=== PATIENT | male | born 1955 | race Caucasian/White ===

== ENCOUNTER → 2020-01-30 | Emergency (ER) | payer MEDICAID, OTHER ==
[~2020-01-30] VITALS: Ht 175.3 cm; Wt 77.1 kg
[2020-01-30 10:38] LABS: Basophils # (auto) 0.1 10 ^3/uL (0-0.2); Basophils % (auto) 0.6 % (0.0-2.0); Eosinophils # (auto) 0.2 10 ^3/uL (0-0.8); Eosinophils % (auto) 1.4 % (0.0-7.0); Hematocrit 48.3 % (41.0-53.0); Lymphocytes # (auto) 2.1 10 ^3/uL (0.4-5.4); Lymphocytes % (auto) 16.1 % (10.0-50.0); Mean Corpuscular Hgb Conc. 33.2 g/dL (32.0-36.0); Mean Corpuscular Volume 93.4 fL (80.0-100.0); Monocytes # (auto) 1.5 10 ^3/uL (0-1.3); Monocytes % (auto) 11.2 % (0.0-12.0); Neutrophils # (auto) 9.2 10 ^3/uL (1.6-8.6); Neutrophils % (auto) 70.7 % (37.0-80.0); Nucleated Red Blood Cells % 0.1 %; Platelet Count (auto) 221 10^3/uL (140-450); Red Blood Cells 5.17 10^6/uL (4.5-5.90); Red Cell Distribution Width 14.6 % (11.8-14.3); White Blood Cell 13.1 10^3/uL (4.4-10.8)
[2020-01-30 11:03] LABS: Chloride 105 mmol/L (98-107); Potassium 4.1 mmol/L (3.5-5.1); Sodium 136 mmol/L (136-145)
[2020-01-30 11:16] LABS: Urine WBC None Seen /hpf (0 - 3)
[2020-01-30 11:16] LABS: Alanine Aminotransferase 36 U/L (16-61); Albumin 4.1 g/dL (3.4-5.0); Alkaline Phosphatase 104 U/L (45-117); Anion Gap 6 (5-15); Aspartate Aminotransferase 23 U/L (15-37); BUN/Creatinine Ratio 11.1; Bilirubin, Total 0.5 mg/dL (0.2-1.0); Blood Urea Nitrogen 13 mg/dL (7-18); Calcium 9.4 mg/dL (8.5-10.1); Carbon Dioxide 25 mmol/L (21-32); GFR African American 81 mL/min; GFR Non-African American 67 mL/min; Glucose 115 mg/dL (74-106); Magnesium 2.3 mg/dL (1.6-2.6); Total Protein 7.3 g/dL (6.4-8.2)
[2020-01-30 11:46] LABS: Urine Bacteria NONE SEEN /hpf (None Seen); Urine Blood Negative /uL (Negative); Urine Specific Gravity 1.003 (1.001-1.035)
[2020-01-30 12:23] LABS: Alcohol, Urine < 3.0 mg/dL (0-10); Amphetamine Screen, Urine NEGATIVE (NEGATIVE); Barbiturate Scree,Urine NEGATIVE (NEGATIVE); Benzodiazephine Screen, Urine NEGATIVE (NEGATIVE); Cannabinoid Screen, Urine NEGATIVE (NEGATIVE); Cocaine Screen, Urine NEGATIVE (NEGATIVE); Opiate Scree,Urine NEGATIVE (NEGATIVE); Phencyclidine Screen, Urine NEGATIVE (NEGATIVE)
[2020-01-30 15:00] VITALS: BP 113/77
== END | disposition home or self-care (01) ==
LOC: EDBD 09:37 → ER 09:37
DX: R73.03 Prediabetes (principal); F41.9 Anxiety disorder, unspecified
CPT/HCPCS: 36415; 71045; 80053; 80307; 81001; 83735; 84484; 85025; 93005

== ENCOUNTER 2020-02-08 10:07 | Emergency (ER) | payer MEDICAID ==
[~2020-02-08] VITALS: Ht 175.3 cm; Wt 77.1 kg
[2020-02-08 11:22] LABS: Basophils # (auto) 0.1 10 ^3/uL (0-0.2); Basophils % (auto) 0.8 % (0.0-2.0); Eosinophils # (auto) 0.2 10 ^3/uL (0-0.8); Eosinophils % (auto) 1.4 % (0.0-7.0); Hemoglobin 17.4 g/dL (13.5-17.5); Lymphocytes # (auto) 2.5 10 ^3/uL (0.4-5.4); Lymphocytes % (auto) 18.5 % (10.0-50.0); Mean Corpuscular Hemoglobin 30.5 pg (28.0-32.0); Mean Corpuscular Hgb Conc. 32.9 g/dL (32.0-36.0); Mean Corpuscular Volume 92.8 fL (80.0-100.0); Monocytes # (auto) 1.3 10 ^3/uL (0-1.3); Monocytes % (auto) 9.8 % (0.0-12.0); Neutrophils # (auto) 9.3 10 ^3/uL (1.6-8.6); Neutrophils % (auto) 69.5 % (37.0-80.0); Platelet Count (auto) 270 10^3/uL (140-450); Red Blood Cells 5.71 10^6/uL (4.5-5.90); Red Cell Distribution Width 14.7 % (11.8-14.3); White Blood Cell 13.3 10^3/uL (4.4-10.8)
[2020-02-08 11:23] LABS: Urine Bacteria NONE SEEN /hpf (None Seen); Urine Blood Negative /uL (Negative); Urine Specific Gravity 1.005 (1.001-1.035); Urine WBC <1 /hpf (0 - 3)
[2020-02-08 11:39] LABS: Alanine Aminotransferase 38 U/L (16-61); Albumin 4.5 g/dL (3.4-5.0); Anion Gap 5 (5-15); Aspartate Aminotransferase 21 U/L (15-37); BUN/Creatinine Ratio 8.8; Blood Urea Nitrogen 12 mg/dL (7-18); Calcium 9.8 mg/dL (8.5-10.1); Carbon Dioxide 29 mmol/L (21-32); Chloride 103 mmol/L (98-107); GFR African American 68 mL/min; GFR Non-African American 56 mL/min; Glucose 91 mg/dL (74-106); Potassium 4.3 mmol/L (3.5-5.1); Sodium 137 mmol/L (136-145)
[2020-02-08 11:43] LABS: Alkaline Phosphatase 137 U/L (45-117); Bilirubin, Total 0.8 mg/dL (0.2-1.0); Total Protein 8.4 g/dL (6.4-8.2)
[2020-02-08 17:19] VITALS: BP 123/85
== END 2020-02-08 15:34 | disposition home or self-care (01) ==
LOC: ER 10:07
DX: R53.1 Weakness (principal); R19.7 Diarrhea, unspecified; J44.9 Chronic obstructive pulmonary disease, unspecified; E11.9 Type 2 diabetes mellitus without complications; I10 Essential (primary) hypertension; Z88.1 Allergy status to other antibiotic agents; Z90.49 Acquired absence of other specified parts of digestive tract
CPT/HCPCS: 36415; 71045; 80053; 81001; 84484; 85025; 93005; 99285; J7030

== ENCOUNTER 2020-11-06 17:52 | Inpatient (IN) | payer MEDICAID ==
[~2020-11-06] VITALS: Ht 182.9 cm; Wt 67.0 kg
[2020-11-06] MEDS ORDERED: IPRATROPIUM BROM 0.5 MG/2.5ML INH SOL NEB ONE (19:00)
[2020-11-06] MEDS ORDERED: ALBUTEROL SULF 2.5 MG/0.5ML(0.5%) NEB SOLN NEB ONE (19:00)
[2020-11-06 19:45] LABS: Albumin 3.9 g/dL (3.4-5.0); Anion Gap 7 (5-15); Basophils # (auto) 0.1 10 ^3/uL (0-0.2); Basophils % (auto) 0.3 % (0.0-2.0); Blood Urea Nitrogen 22 mg/dL (7-18); Calcium 9.1 mg/dL (8.5-10.1); Carbon Dioxide 26 mmol/L (21-32); Chloride 105 mmol/L (98-107); Eosinophils # (auto) 0.2 10 ^3/uL (0-0.8); Eosinophils % (auto) 1.1 % (0.0-7.0); Glucose 105 mg/dL (74-106); Hematocrit 46.4 % (41.0-53.0); Hemoglobin 15.9 g/dL (13.5-17.5); Lymphocytes # (auto) 1.4 10 ^3/uL (0.4-5.4); Lymphocytes % (auto) 6.9 % (10.0-50.0); Magnesium 2.4 mg/dL (1.6-2.6); Mean Corpuscular Hemoglobin 31.7 pg (28.0-32.0); Mean Corpuscular Hgb Conc. 34.2 g/dL (32.0-36.0); Mean Corpuscular Volume 92.8 fL (80.0-100.0); Monocytes # (auto) 1.7 10 ^3/uL (0-1.3); Monocytes % (auto) 8.5 % (0.0-12.0); Neutrophils # (auto) 17.1 10 ^3/uL (1.6-8.6); Neutrophils % (auto) 83.2 % (37.0-80.0); Nucleated Red Blood Cells % 0.1 %; Platelet Count (auto) 185 10^3/uL (140-450); Potassium 4.4 mmol/L (3.5-5.1); Red Cell Distribution Width 13.5 % (11.8-14.3); Sodium 138 mmol/L (136-145); White Blood Cell 20.5 10^3/uL (4.4-10.8)
[2020-11-06 19:51] LABS: Alanine Aminotransferase 58 U/L (16-61); Alkaline Phosphatase 158 U/L (45-117); Aspartate Aminotransferase 88 U/L (15-37); BUN/Creatinine Ratio 18.3; Bilirubin, Total 1.3 mg/dL (0.2-1.0); GFR African American 79 mL/min; GFR Non-African American 65 mL/min; Total Protein 7.3 g/dL (6.4-8.2)
[2020-11-06 20:00] LABS: INR 1.1 (0.9-1.15); Partial Thromboplastin Time 24.3 sec (23.0-31.2)
[2020-11-06] MEDS ORDERED: IOHEXOL 300 MG/ML 100ML BOTTLE IJ ONE (21:05)
[2020-11-06 21:20] LABS: Urine Bacteria NONE SEEN /hpf (None Seen); Urine Blood Negative /uL (Negative); Urine Hyaline Cast FEW /lpf (0 - 2); Urine Mucus FEW (None Seen); Urine Specific Gravity 1.017 (1.001-1.035); Urine WBC 2 /hpf (0 - 3)
[2020-11-07] MEDS ORDERED: metroNIDAZOLE 500MG/100ML 100 ML IV ONE
[2020-11-07] MEDS ORDERED: levoFLOXacin 750MG 150 ML IV ONE
[2020-11-07] MEDS ORDERED: HYDROcodone-ACET 5/325MG TAB PO PRN (00:45)
[2020-11-07] MEDS ORDERED: IPRATROPIUM BROM 0.5 MG/2.5ML INH SOL NEB PRN (00:45)
[2020-11-07] MEDS ORDERED: MORPHINE SULF INJ 2 MG/ML SYRINGE 1ML IV PRN (00:45)
[2020-11-07] MEDS ORDERED: VANCOMYCIN PER PHARMACY 0 MG IV SCH (00:45)
[2020-11-07] MEDS ORDERED: ACETAMINOPHEN 325 MG TAB PO PRN (00:45)
[2020-11-07] MEDS ORDERED: ONDANSETRON HCL 4 MG/2 ML VIAL IV PRN (00:45)
[2020-11-07] MEDS ORDERED: NITROGLYCERIN 0.4 MG SL TAB SL PRN (00:45)
[2020-11-07] MEDS ORDERED: MORPHINE SULFATE 4 MG/ML SYR/VIAL IV PRN (00:45)
[2020-11-07] MEDS ORDERED: ALBUTEROL SULF 2.5 MG/0.5ML(0.5%) NEB SOLN NEB PRN (00:45)
[2020-11-07 00:49] VITALS: BP 104/77
[2020-11-07] MEDS ORDERED: VANCOMYCIN 1GM/250ML 250 ML IV ONE (01:00)
[2020-11-07] MEDS: SODIUM CHLORIDE 0.9% 1,000 ML IV SCH ×2 (02:43→17:25)
[2020-11-07 05:09] VITALS: BP 111/76
[2020-11-07] MEDS: metroNIDAZOLE 500MG/100ML 100 ML IV SCH ×2 (06:33→14:38)
[2020-11-07 07:20] LABS: Basophils # (auto) 0 10 ^3/uL (0-0.2); Basophils % (auto) 0.3 % (0.0-2.0); Eosinophils # (auto) 0.3 10 ^3/uL (0-0.8); Eosinophils % (auto) 2.9 % (0.0-7.0); Hematocrit 45.3 % (41.0-53.0); Hemoglobin 15.4 g/dL (13.5-17.5); Lymphocytes # (auto) 1.7 10 ^3/uL (0.4-5.4); Lymphocytes % (auto) 16.6 % (10.0-50.0); Mean Corpuscular Hemoglobin 31.4 pg (28.0-32.0); Mean Corpuscular Hgb Conc. 34.1 g/dL (32.0-36.0); Mean Corpuscular Volume 92.3 fL (80.0-100.0); Monocytes # (auto) 1.2 10 ^3/uL (0-1.3); Monocytes % (auto) 12.2 % (0.0-12.0); Neutrophils # (auto) 6.8 10 ^3/uL (1.6-8.6); Nucleated Red Blood Cells % 0.1 %; Platelet Count (auto) 178 10^3/uL (140-450); Red Blood Cells 4.91 10^6/uL (4.5-5.90); Red Cell Distribution Width 13.9 % (11.8-14.3)
[2020-11-07] MEDS ORDERED: TIOT1AER INH (07:20)
[2020-11-07] MEDS ORDERED: SPIR25TA8 PO (07:20)
[2020-11-07] MEDS ORDERED: TRAZ-181 PO (07:20)
[2020-11-07] MEDS ORDERED: HYDR-4072 (07:20)
[2020-11-07] MEDS ORDERED: FUR20T PO (07:20)
[2020-11-07] MEDS ORDERED: AMLO-496 PO (07:20)
[2020-11-07] MEDS ORDERED: CYCL-611 PO (07:20)
[2020-11-07] MEDS ORDERED: ALBU108A5 PO (07:20)
[2020-11-07 07:32] LABS: Albumin 3.5 g/dL (3.4-5.0); Calcium 8.6 mg/dL (8.5-10.1); Potassium 4.3 mmol/L (3.5-5.1)
[2020-11-07 07:37] LABS: BUN/Creatinine Ratio 14.4; Bilirubin, Total 1.2 mg/dL (0.2-1.0)
[2020-11-07 08:25] VITALS: BP 117/72
[2020-11-07] MEDS: PANTOPRAZOLE 40 MG/10 ML VIAL INJ IV SCH (09:50)
[2020-11-07] MEDS: ENOXAPARIN SOD 40 MG/0.4 ML SYRINGE SC SCH (09:50)
[2020-11-07] MEDS ORDERED: GASTROGRAFIN 120 ML SOL ONE (12:41)
[2020-11-07 12:47] VITALS: BP 130/73
[2020-11-07] MEDS ORDERED: VANCOMYCIN 1GM/250ML 250 ML IV SCH ×2 (15:00→16:00)
[2020-11-07 16:52] VITALS: BP 127/95
[2020-11-07 22:00] VITALS: BP 122/84
[2020-11-08] MEDS: metroNIDAZOLE 500MG/100ML 100 ML IV SCH ×2 (03:24→05:11)
[2020-11-08 05:00] VITALS: BP 111/74
[2020-11-08 08:17] LABS: Basophils # (auto) 0.1 10 ^3/uL (0-0.2); Basophils % (auto) 1.3 % (0.0-2.0); Eosinophils # (auto) 0.8 10 ^3/uL (0-0.8); Eosinophils % (auto) 7.7 % (0.0-7.0); Hematocrit 45.1 % (41.0-53.0); Hemoglobin 15.9 g/dL (13.5-17.5); Lymphocytes # (auto) 2.5 10 ^3/uL (0.4-5.4); Lymphocytes % (auto) 24.1 % (10.0-50.0); Mean Corpuscular Hemoglobin 32.5 pg (28.0-32.0); Mean Corpuscular Hgb Conc. 35.2 g/dL (32.0-36.0); Mean Corpuscular Volume 92.5 fL (80.0-100.0); Monocytes # (auto) 1.1 10 ^3/uL (0-1.3); Monocytes % (auto) 10.9 % (0.0-12.0); Neutrophils # (auto) 5.9 10 ^3/uL (1.6-8.6); Nucleated Red Blood Cells % 0.1 %; Platelet Count (auto) 175 10^3/uL (140-450); Red Blood Cells 4.88 10^6/uL (4.5-5.90); Red Cell Distribution Width 13.9 % (11.8-14.3); White Blood Cell 10.5 10^3/uL (4.4-10.8)
[2020-11-08 08:32] LABS: Albumin 3.7 g/dL (3.4-5.0); Calcium 8.9 mg/dL (8.5-10.1); Potassium 4.2 mmol/L (3.5-5.1)
[2020-11-08 08:36] LABS: BUN/Creatinine Ratio 16.7; Bilirubin, Total 0.8 mg/dL (0.2-1.0)
[2020-11-08 09:00] VITALS: BP 129/77
[2020-11-08] MEDS: ENOXAPARIN SOD 40 MG/0.4 ML SYRINGE SC SCH (10:37)
[2020-11-08] MEDS: SODIUM CHLORIDE 0.9% 1,000 ML IV SCH (10:37)
[2020-11-08] MEDS: PANTOPRAZOLE 40 MG/10 ML VIAL INJ IV SCH (10:37)
[2020-11-08 11:57] VITALS: BP 129/77
[2020-11-08 13:00] VITALS: BP 149/83
[2020-11-08] MEDS ORDERED: VANCOMYCIN 1GM/250ML 250 ML IV SCH (18:00)
== END 2020-11-08 13:30 | disposition home or self-care (01) | DRG 247 ==
LOC: EDBD 17:52 → EDUNIT# 17:52 → ER 17:58 → TELE-CENTR 11-07 00:44
PROVIDERS: ADMIT Nurse Practitioner Family; ATTEND Internal Medicine
DX: K56.699 Other intestinal obstruction unspecified as to partial versus complete obstruction (principal); C22.0 Liver cell carcinoma; R18.8 Other ascites; J44.1 Chronic obstructive pulmonary disease with (acute) exacerbation; D72.829 Elevated white blood cell count, unspecified; E11.9 Type 2 diabetes mellitus without complications; G89.4 Chronic pain syndrome; I10 Essential (primary) hypertension; K59.00 Constipation, unspecified; Z87.891 Personal history of nicotine dependence; Z90.49 Acquired absence of other specified parts of digestive tract; M19.90 Unspecified osteoarthritis, unspecified site; Z88.1 Allergy status to other antibiotic agents; Z20.822 Contact with and (suspected) exposure to COVID-19; K57.30 Diverticulosis of large intestine without perforation or abscess without bleeding
CPT/HCPCS: 36415; 71260; 74177; 74250; 80053; 81001; 82140; 83036; 83735; 84484; 85025; 85610; 85730; 87040; 87426; 94640; 96365; 96368; C9113; G0378; J1956; J3490

== ENCOUNTER 2021-01-16 16:23 | Emergency (ER) | payer MEDICAID ==
[~2021-01-16] VITALS: Ht 175.3 cm; Wt 78.0 kg
[~2021-01-16 16:23] MED LIST: ALBU108A5 PO; AMLO-496 PO; CYCL-611 PO; FUR20T PO; HYDR-4072; SPIR25TA8 PO; TIOT1AER INH; TRAZ-181 PO
[2021-01-16] MEDS ORDERED: SODIUM CHLORIDE 0.9% 1,000 ML IV ONE ×2 (16:45)
[2021-01-16 16:46] LABS: Basophils # (auto) 0.1 10 ^3/uL (0-0.2); Basophils % (auto) 0.6 % (0.0-2.0); Eosinophils # (auto) 0.5 10 ^3/uL (0-0.8); Eosinophils % (auto) 3.3 % (0.0-7.0); Hematocrit 47.9 % (41.0-53.0); Hemoglobin 16.1 g/dL (13.5-17.5); Lymphocytes # (auto) 2.1 10 ^3/uL (0.4-5.4); Lymphocytes % (auto) 14.4 % (10.0-50.0); Mean Corpuscular Hemoglobin 31.4 pg (28.0-32.0); Mean Corpuscular Hgb Conc. 33.6 g/dL (32.0-36.0); Mean Corpuscular Volume 93.5 fL (80.0-100.0); Monocytes # (auto) 1.7 10 ^3/uL (0-1.3); Monocytes % (auto) 11.2 % (0.0-12.0); Neutrophils # (auto) 10.4 10 ^3/uL (1.6-8.6); Neutrophils % (auto) 70.5 % (37.0-80.0); Nucleated Red Blood Cells % 0.1 %; Red Blood Cells 5.13 10^6/uL (4.5-5.90); Red Cell Distribution Width 14.8 % (11.8-14.3); White Blood Cell 14.8 10^3/uL (4.4-10.8)
[2021-01-16 17:09] LABS: Albumin 3.8 g/dL (3.4-5.0); Anion Gap 5 (5-15); Blood Urea Nitrogen 13 mg/dL (7-18); Carbon Dioxide 25 mmol/L (21-32); Chloride 107 mmol/L (98-107); Glucose 112 mg/dL (74-106); Potassium 4.6 mmol/L (3.5-5.1); Sodium 137 mmol/L (136-145)
[2021-01-16 17:11] LABS: Alanine Aminotransferase 128 U/L (16-61); Aspartate Aminotransferase 55 U/L (15-37); BUN/Creatinine Ratio 12.6; GFR African American 94 mL/min; GFR Non-African American 78 mL/min
[2021-01-16 17:15] LABS: Alkaline Phosphatase 130 U/L (45-117); Bilirubin, Total 0.4 mg/dL (0.2-1.0); Total Protein 7.3 g/dL (6.4-8.2)
[2021-01-16 18:24] VITALS: BP 128/99
== END 2021-01-16 18:50 | disposition home or self-care (01) ==
LOC: ER 16:23
DX: K58.9 Irritable bowel syndrome, unspecified (principal); I10 Essential (primary) hypertension; Z90.49 Acquired absence of other specified parts of digestive tract; Z88.6 Allergy status to analgesic agent; Z20.822 Contact with and (suspected) exposure to COVID-19
CPT/HCPCS: 36415; 71045; 74176; 80053; 84484; 85025; 87426; 93005

== ENCOUNTER 2021-01-31 05:15 | Emergency (ER) | payer MEDICAID ==
[~2021-01-31] VITALS: Ht 175.3 cm; Wt 71.7 kg
[2021-01-31] MEDS ORDERED: ACETAMINOPHEN 325 MG TAB PO ONE (05:45)
[2021-01-31 06:33] LABS: Basophils # (auto) 0.2 10 ^3/uL (0-0.2); Basophils % (auto) 0.8 % (0.0-2.0); Eosinophils # (auto) 0.1 10 ^3/uL (0-0.8); Eosinophils % (auto) 0.5 % (0.0-7.0); Hematocrit 46.6 % (41.0-53.0); Hemoglobin 15.9 g/dL (13.5-17.5); Lymphocytes # (auto) 1.2 10 ^3/uL (0.4-5.4); Lymphocytes % (auto) 5.8 % (10.0-50.0); Mean Corpuscular Hemoglobin 31.9 pg (28.0-32.0); Mean Corpuscular Hgb Conc. 34.2 g/dL (32.0-36.0); Mean Corpuscular Volume 93.2 fL (80.0-100.0); Monocytes # (auto) 2.9 10 ^3/uL (0-1.3); Monocytes % (auto) 13.7 % (0.0-12.0); Neutrophils # (auto) 16.8 10 ^3/uL (1.6-8.6); Neutrophils % (auto) 79.2 % (37.0-80.0); Nucleated Red Blood Cells % 0.1 %; White Blood Cell 21.2 10^3/uL (4.4-10.8)
[2021-01-31 06:56] LABS: Albumin 3.3 g/dL (3.4-5.0); Anion Gap 8 (5-15); Blood Urea Nitrogen 15 mg/dL (7-18); Calcium 8.8 mg/dL (8.5-10.1); Carbon Dioxide 23 mmol/L (21-32); Chloride 104 mmol/L (98-107); Glucose 102 mg/dL (74-106); Potassium 4.1 mmol/L (3.5-5.1); Sodium 135 mmol/L (136-145)
[2021-01-31 07:01] LABS: Alanine Aminotransferase 51 U/L (16-61); Alkaline Phosphatase 95 U/L (45-117); Aspartate Aminotransferase 34 U/L (15-37); BUN/Creatinine Ratio 15.8; GFR African American 103 mL/min; GFR Non-African American 85 mL/min; Total Protein 7.4 g/dL (6.4-8.2)
[2021-01-31 09:43] LABS: Urine WBC None Seen /hpf (0 - 3)
[2021-01-31 09:53] LABS: Urine Bacteria NONE SEEN /hpf (None Seen); Urine Blood Negative /uL (Negative); Urine Specific Gravity 1.006 (1.001-1.035)
[2021-01-31] MEDS ORDERED: cefTRIAXone 1GM/50ML D5W 50 ML IV ONE (10:15)
[2021-01-31 11:16] VITALS: BP 115/79
== END 2021-01-31 11:35 | disposition home or self-care (01) ==
LOC: ER 05:15
DX: J40 Bronchitis, not specified as acute or chronic (principal); I10 Essential (primary) hypertension; Z20.822 Contact with and (suspected) exposure to COVID-19; Z90.49 Acquired absence of other specified parts of digestive tract
CPT/HCPCS: 36415; 71045; 80053; 81001; 83880; 84484; 85025; 87426; 93005; 96365; 99285; J0696

== ENCOUNTER 2021-08-01 10:34 | Inpatient (IN) | payer MEDICAID ==
[~2021-08-01] VITALS: Ht 175.3 cm; Wt 77.0 kg
[2021-08-01] MEDS ORDERED: SODIUM CHLORIDE 0.9% 1,000 ML IV ONE (10:45)
[2021-08-01 11:23] LABS: Basophils # (auto) 0.1 10 ^3/uL (0-0.2); Basophils % (auto) 0.8 % (0.0-2.0); Eosinophils # (auto) 0.2 10 ^3/uL (0-0.8); Eosinophils % (auto) 1.5 % (0.0-7.0); Hematocrit 53.1 % (41.0-53.0); Hemoglobin 17.8 g/dL (13.5-17.5); Lymphocytes # (auto) 1.6 10 ^3/uL (0.4-5.4); Lymphocytes % (auto) 13.3 % (10.0-50.0); Mean Corpuscular Hemoglobin 31.1 pg (28.0-32.0); Mean Corpuscular Hgb Conc. 33.6 g/dL (32.0-36.0); Mean Corpuscular Volume 92.5 fL (80.0-100.0); Monocytes % (auto) 8.1 % (0.0-12.0); Neutrophils # (auto) 9.1 10 ^3/uL (1.6-8.6); Neutrophils % (auto) 76.3 % (37.0-80.0); Nucleated Red Blood Cells % 0.1 %; Red Blood Cells 5.74 10^6/uL (4.5-5.90); Red Cell Distribution Width 14.7 % (11.8-14.3)
[2021-08-01 11:38] LABS: Albumin 4.5 g/dL (3.4-5.0); Calcium 9.9 mg/dL (8.5-10.1); Potassium 4.5 mmol/L (3.5-5.1)
[2021-08-01 11:46] LABS: Bilirubin, Total 1.1 mg/dL (0.2-1.0); Total Protein 8.3 g/dL (6.4-8.2)
[2021-08-01] MEDS ORDERED: IPRATROPIUM BROM 0.5 MG/2.5ML INH SOL NEB ONE (13:00)
[2021-08-01] MEDS ORDERED: cefTRIAXone 1GM/50ML D5W 50 ML IV ONE (13:00)
[2021-08-01] MEDS ORDERED: methylPREDNISolone SOD SUCC 125 MG/2 ML VL IV ONE (13:00)
[2021-08-01] MEDS ORDERED: ALBUTEROL SULF 2.5 MG/0.5ML(0.5%) NEB SOLN NEB ONE (13:00)
[2021-08-01] MEDS ORDERED: ACETAMINOPHEN 325 MG TAB PO PRN (16:15)
[2021-08-01] MEDS ORDERED: MORPHINE SULFATE 4 MG/ML SYR/VIAL IV PRN (16:15)
[2021-08-01] MEDS ORDERED: MORPHINE SULFATE INJECTION 2 MG/ML SYRG IV PRN (16:15)
[2021-08-01] MEDS ORDERED: HYDROcodone-ACET 5/325MG TAB PO PRN (16:15)
[2021-08-01] MEDS ORDERED: DOCUSATE SOD 100 MG CAP PO PRN (16:15)
[2021-08-01] MEDS ORDERED: NITROGLYCERIN 0.4 MG SL TAB SL PRN (16:15)
[2021-08-01] MEDS ORDERED: ONDANSETRON HCL 4 MG/2 ML VIAL IV PRN (16:15)
[2021-08-01] MEDS ORDERED: AZITHROMYCIN 500MG/ 250ML 250 ML IV ONE (16:30)
[2021-08-01] MEDS: IPRATROPIUM BROM 0.5 MG/2.5ML INH SOL NEB SCH ×2 (18:19→22:12)
[2021-08-01] MEDS: ALBUTEROL SULF 2.5 MG/0.5ML(0.5%) NEB SOLN NEB SCH ×2 (18:19→22:12)
[2021-08-01] MEDS: methylPREDNISolone SOD SUCC 40 MG/ML VL IV SCH (22:51)
[2021-08-01] MEDS: ASCORBIC ACID 500 MG TAB PO SCH (22:51)
[2021-08-02] MEDS: TEMAZEPAM 15 MG CAP PO PRN ×2 (04:07→23:59)
[2021-08-02 05:00] VITALS: BP 131/78
[2021-08-02] MEDS: ALBUTEROL SULF 2.5 MG/0.5ML(0.5%) NEB SOLN NEB SCH ×5 (06:13→21:58)
[2021-08-02] MEDS: IPRATROPIUM BROM 0.5 MG/2.5ML INH SOL NEB SCH ×5 (06:14→21:58)
[2021-08-02] MEDS: methylPREDNISolone SOD SUCC 40 MG/ML VL IV SCH ×3 (06:28→21:34)
[2021-08-02 07:37] LABS: Potassium 4.2 mmol/L (3.5-5.1)
[2021-08-02 07:45] LABS: Basophils # (auto) 0 10 ^3/uL (0-0.2); Basophils % (auto) 0.1 % (0.0-2.0); Eosinophils # (auto) 0 10 ^3/uL (0-0.8); Hematocrit 49.2 % (41.0-53.0); Hemoglobin 16.7 g/dL (13.5-17.5); Lymphocytes # (auto) 0.9 10 ^3/uL (0.4-5.4); Lymphocytes % (auto) 4.9 % (10.0-50.0); Mean Corpuscular Hemoglobin 31.1 pg (28.0-32.0); Mean Corpuscular Hgb Conc. 33.9 g/dL (32.0-36.0); Mean Corpuscular Volume 91.8 fL (80.0-100.0); Monocytes # (auto) 0.5 10 ^3/uL (0-1.3); Monocytes % (auto) 2.6 % (0.0-12.0); Neutrophils # (auto) 16.4 10 ^3/uL (1.6-8.6); Neutrophils % (auto) 92.4 % (37.0-80.0); Nucleated Red Blood Cells % 0.1 %; Red Blood Cells 5.36 10^6/uL (4.5-5.90); Red Cell Distribution Width 14.3 % (11.8-14.3); White Blood Cell 17.8 10^3/uL (4.4-10.8)
[2021-08-02 07:57] LABS: BUN/Creatinine Ratio 25.5; Calcium 9.5 mg/dL (8.5-10.1); Magnesium 2.6 mg/dL (1.6-2.6)
[2021-08-02 08:40] VITALS: BP 129/77
[2021-08-02] MEDS: ZINC SULFATE 220mg CAP or TAB PO SCH (10:00)
[2021-08-02] MEDS: MULTIPLE VITAMIN TAB PO SCH (10:00)
[2021-08-02] MEDS: ASCORBIC ACID 500 MG TAB PO SCH ×2 (10:00→21:34)
[2021-08-02] MEDS: ENOXAPARIN SOD 40 MG/0.4 ML SYRINGE SC SCH (10:00)
[2021-08-02] MEDS: CEFTRIAXONE SODIUM 2 GM in D5W 5% 50 ML IV SCH (10:00)
[2021-08-02] MEDS: AZITHROMYCIN 500MG/ 250ML 250 ML IV SCH (10:45)
[2021-08-02 12:00] VITALS: BP 154/79
[2021-08-02] MEDS ORDERED: IOHEXOL 350 MG/ML 100ML IJ ONE (12:06)
[2021-08-02 16:15] VITALS: BP 117/67
[2021-08-02] MEDS ORDERED: amLODIPine BESYLATE 5 MG TAB PO ONE (16:30)
[2021-08-02] MEDS: THROAT LOZENGES(CEPASTAT) MT PRN ×2 (17:12→21:34)
[2021-08-02 22:00] VITALS: BP 114/83
[2021-08-02] MEDS ORDERED: CYCLOBENZAPRINE HCL 10 MG TAB PO PRN (22:00)
[2021-08-02] MEDS ORDERED: traZODone HCL 50 MG TAB PO SCH (22:00)
[2021-08-03] MEDS: methylPREDNISolone SOD SUCC 40 MG/ML VL IV SCH (05:51)
[2021-08-03] MEDS: IPRATROPIUM BROM 0.5 MG/2.5ML INH SOL NEB SCH ×3 (07:15→13:41)
[2021-08-03] MEDS: ALBUTEROL SULF 2.5 MG/0.5ML(0.5%) NEB SOLN NEB SCH ×3 (07:15→13:40)
[2021-08-03 09:00] VITALS: BP 111/77
[2021-08-03] MEDS: ZINC SULFATE 220mg CAP or TAB PO SCH (09:46)
[2021-08-03] MEDS: ASCORBIC ACID 500 MG TAB PO SCH (09:46)
[2021-08-03] MEDS: MULTIPLE VITAMIN TAB PO SCH (09:46)
[2021-08-03] MEDS: AZITHROMYCIN 500MG/ 250ML 250 ML IV SCH (09:48)
[2021-08-03] MEDS: ENOXAPARIN SOD 40 MG/0.4 ML SYRINGE SC SCH (09:55)
[2021-08-03] MEDS ORDERED: amLODIPine BESYLATE 5 MG TAB PO SCH (10:00)
[2021-08-03] MEDS ORDERED: METH4PAK PO (12:03)
[2021-08-03] MEDS: CEFTRIAXONE SODIUM 2 GM in D5W 5% 50 ML IV SCH (12:39)
[2021-08-03 13:00] VITALS: BP 124/77
== END 2021-08-03 15:54 | disposition home or self-care (01) | DRG 140 ==
LOC: ER 10:36 → TELE 16:13 → TELE-CENTR 22:00
PROVIDERS: ADMIT Internal Medicine; ATTEND Internal Medicine
DX: J43.9 Emphysema, unspecified (principal); J96.21 Acute and chronic respiratory failure with hypoxia; B18.2 Chronic viral hepatitis C; D72.829 Elevated white blood cell count, unspecified; G89.4 Chronic pain syndrome; I10 Essential (primary) hypertension; T38.0X5A Adverse effect of glucocorticoids and synthetic analogues, initial encounter; Z20.822 Contact with and (suspected) exposure to COVID-19; Z85.05 Personal history of malignant neoplasm of liver; Z85.46 Personal history of malignant neoplasm of prostate; Z87.891 Personal history of nicotine dependence; Z80.0 Family history of malignant neoplasm of digestive organs; Y92.89 Other specified places as the place of occurrence of the external cause; Z90.49 Acquired absence of other specified parts of digestive tract; Z88.1 Allergy status to other antibiotic agents
CPT/HCPCS: 36415; 71045; 71275; 80048; 80053; 83735; 84484; 85025; 85379; 87426; 94640; 96365; 96367; 96375; G0378; J0696; J7060

== ENCOUNTER 2021-08-18 13:33 | Inpatient (IN) | payer MEDICAID ==
[~2021-08-18] VITALS: Ht 175.3 cm; Wt 76.6 kg
[~2021-08-18 13:33] MED LIST changes: +METH4PAK PO
[2021-08-18] MEDS ORDERED: ASPirin 81 mg TAB PO ONE (13:45)
[2021-08-18 14:14] LABS: Basophils # (auto) 0.1 10 ^3/uL (0-0.2); Eosinophils # (auto) 0.2 10 ^3/uL (0-0.8); Hemoglobin 18.3 g/dL (13.5-17.5); Lymphocytes # (auto) 2.4 10 ^3/uL (0.4-5.4); Neutrophils # (auto) 10.7 10 ^3/uL (1.6-8.6); Nucleated Red Blood Cells % 0.1 %
[2021-08-18 14:16] LABS: Basophils % (auto) 0.4 % (0.0-2.0); Eosinophils % (auto) 1.2 % (0.0-7.0); Hematocrit 53.7 % (41.0-53.0); Lymphocytes % (auto) 16.3 % (10.0-50.0); Mean Corpuscular Hemoglobin 31.7 pg (28.0-32.0); Mean Corpuscular Hgb Conc. 34.2 g/dL (32.0-36.0); Mean Corpuscular Volume 92.7 fL (80.0-100.0); Monocytes # (auto) 1.5 10 ^3/uL (0-1.3); Monocytes % (auto) 10.3 % (0.0-12.0); Neutrophils % (auto) 71.8 % (37.0-80.0); Red Blood Cells 5.79 10^6/uL (4.5-5.90); Red Cell Distribution Width 14.8 % (11.8-14.3); White Blood Cell 14.9 10^3/uL (4.4-10.8)
[2021-08-18 14:31] LABS: Albumin 3.7 g/dL (3.4-5.0); BUN/Creatinine Ratio 17.3; Calcium 9.1 mg/dL (8.5-10.1); Potassium 4.4 mmol/L (3.5-5.1)
[2021-08-18 14:36] LABS: Bilirubin, Total 0.9 mg/dL (0.2-1.0); Total Protein 7.1 g/dL (6.4-8.2)
[2021-08-18] MEDS ORDERED: SODIUM CHLORIDE 0.9% 1,000 ML IV ONE (17:30)
[2021-08-18] MEDS ORDERED: IOHEXOL 350 MG/ML 100ML IJ ONE (17:31)
[2021-08-18 17:51] LABS: Amphetamine Screen, Urine NEGATIVE (NEGATIVE); Barbiturate Scree,Urine NEGATIVE (NEGATIVE); Benzodiazephine Screen, Urine NEGATIVE (NEGATIVE); Cannabinoid Screen, Urine POSITIVE (NEGATIVE); Cocaine Screen, Urine NEGATIVE (NEGATIVE); Opiate Scree,Urine NEGATIVE (NEGATIVE); Phencyclidine Screen, Urine NEGATIVE (NEGATIVE)
[2021-08-18] MEDS ORDERED: DOCUSATE SOD 100 MG CAP PO PRN (20:15)
[2021-08-18] MEDS ORDERED: ONDANSETRON HCL 4 MG/2 ML VIAL IV PRN (20:15)
[2021-08-18] MEDS ORDERED: NITROGLYCERIN 0.4 MG SL TAB SL PRN (20:15)
[2021-08-18] MEDS ORDERED: MORPHINE SULFATE INJECTION 2 MG/ML SYRG IV PRN (20:15)
[2021-08-18] MEDS ORDERED: ACETAMINOPHEN 325 MG TAB PO PRN (20:15)
[2021-08-18] MEDS ORDERED: HYDROcodone-ACET 5/325MG TAB PO PRN (20:15)
[2021-08-18 22:30] VITALS: BP 108/78
[2021-08-18] MEDS: CYCLOBENZAPRINE HCL 10 MG TAB PO SCH (22:47)
[2021-08-18] MEDS: METOPROLOL TARTRATE 25 MG TAB PO SCH (22:48)
[2021-08-18 22:51] VITALS: BP 108/78
[2021-08-19] MEDS: LEVALBUTEROL HCL 1.25 MG/3 ML NEB NEB SCH ×2 (00:19→07:29)
[2021-08-19 02:50] VITALS: BP 107/78
[2021-08-19 05:00] VITALS: BP 107/68
[2021-08-19 05:22] LABS: Urine WBC None Seen /hpf (0 - 3)
[2021-08-19 06:39] LABS: Basophils # (auto) 0.1 10 ^3/uL (0-0.2); Basophils % (auto) 0.8 % (0.0-2.0); Eosinophils # (auto) 0.2 10 ^3/uL (0-0.8); Eosinophils % (auto) 2.2 % (0.0-7.0); Hematocrit 47.8 % (41.0-53.0); Hemoglobin 16.2 g/dL (13.5-17.5); Lymphocytes # (auto) 2.4 10 ^3/uL (0.4-5.4); Lymphocytes % (auto) 23.4 % (10.0-50.0); Mean Corpuscular Hemoglobin 31.5 pg (28.0-32.0); Mean Corpuscular Hgb Conc. 33.8 g/dL (32.0-36.0); Mean Corpuscular Volume 93.1 fL (80.0-100.0); Monocytes % (auto) 10.3 % (0.0-12.0); Neutrophils # (auto) 6.4 10 ^3/uL (1.6-8.6); Neutrophils % (auto) 63.3 % (37.0-80.0); Nucleated Red Blood Cells % 0.1 %; Red Blood Cells 5.14 10^6/uL (4.5-5.90); Red Cell Distribution Width 14.9 % (11.8-14.3); White Blood Cell 10.1 10^3/uL (4.4-10.8)
[2021-08-19 06:58] LABS: BUN/Creatinine Ratio 26.9; Calcium 8.5 mg/dL (8.5-10.1); Potassium 4.1 mmol/L (3.5-5.1)
[2021-08-19 06:59] LABS: Urine Bacteria NONE SEEN /hpf (None Seen); Urine Blood Negative /uL (Negative); Urine Mucus FEW (None Seen)
[2021-08-19 07:00] LABS: Urine Specific Gravity > 1.050 (1.001-1.035)
[2021-08-19 09:00] VITALS: BP 110/74
[2021-08-19] MEDS: POTASSIUM CHL 20 Meq TABLET PO SCH ×2 (10:00→10:11)
[2021-08-19] MEDS: ENOXAPARIN SOD 40 MG/0.4 ML SYRINGE SC SCH ×2 (10:00→10:13)
[2021-08-19] MEDS: CYCLOBENZAPRINE HCL 10 MG TAB PO SCH ×2 (10:00→10:11)
[2021-08-19] MEDS: FUROSEMIDE 20 MG TAB PO SCH ×2 (10:00→10:12)
[2021-08-19] MEDS: METOPROLOL TARTRATE 25 MG TAB PO SCH (10:12)
[2021-08-19] MEDS ORDERED: LEVA1.2518 NEB (11:41)
[2021-08-19] MEDS ORDERED: POTA10TA32 PO (11:41)
[2021-08-19] MEDS ORDERED: MET25T PO (11:41)
[2021-08-19 13:00] VITALS: BP 113/71
[2021-08-19] MEDS ORDERED: LEVA1.2518 HHN (16:01)
== END 2021-08-19 14:04 | disposition home health service (06) | DRG 201 ==
LOC: ER 13:33 → TELE 20:14 → TELE-EAST 21:39
PROVIDERS: ADMIT Internal Medicine; ATTEND Internal Medicine
DX: R00.0 Tachycardia, unspecified (principal); I11.0 Hypertensive heart disease with heart failure; I50.32 Chronic diastolic (congestive) heart failure; D72.829 Elevated white blood cell count, unspecified; J43.9 Emphysema, unspecified; Z20.822 Contact with and (suspected) exposure to COVID-19; M62.838 Other muscle spasm; F12.90 Cannabis use, unspecified, uncomplicated; R79.89 Other specified abnormal findings of blood chemistry; F17.200 Nicotine dependence, unspecified, uncomplicated; Z71.6 Tobacco abuse counseling; Z80.0 Family history of malignant neoplasm of digestive organs; Z85.05 Personal history of malignant neoplasm of liver; Z85.46 Personal history of malignant neoplasm of prostate; Z88.1 Allergy status to other antibiotic agents; Z90.49 Acquired absence of other specified parts of digestive tract
CPT/HCPCS: 36415; 71045; 71275; 80048; 80053; 80307; 81001; 84443; 84484; 85025; 85379; 87081; 87426; 93005; 93306; 93970; 94640; 96360; G0378

== ENCOUNTER 2021-09-07 08:00 | Emergency (ER) | payer MEDICAID ==
[~2021-09-07] VITALS: Ht 175.3 cm; Wt 76.7 kg
[~2021-09-07 08:00] MED LIST changes: -ALBU108A5 PO; -AMLO-496 PO; +LEVA1.2518 HHN; +MET25T PO; +POTA10TA32 PO; -SPIR25TA8 PO
[2021-09-07] MEDS ORDERED: IPRATROPIUM BROM 0.5 MG/2.5ML INH SOL NEB ONE (08:45)
[2021-09-07] MEDS ORDERED: ALBUTEROL SULF 2.5 MG/0.5ML(0.5%) NEB SOLN NEB ONE (08:45)
[2021-09-07] MEDS ORDERED: methylPREDNISolone SOD SUCC 125 MG/2 ML VL IV ONE (08:45)
[2021-09-07 08:58] LABS: Basophils # (auto) 0.1 10 ^3/uL (0-0.2); Basophils % (auto) 1.2 % (0.0-2.0); Eosinophils # (auto) 0.2 10 ^3/uL (0-0.8); Eosinophils % (auto) 2.3 % (0.0-7.0); Hematocrit 46.5 % (41.0-53.0); Lymphocytes # (auto) 2.1 10 ^3/uL (0.4-5.4); Lymphocytes % (auto) 25.5 % (10.0-50.0); Mean Corpuscular Hemoglobin 31.4 pg (28.0-32.0); Mean Corpuscular Hgb Conc. 34.3 g/dL (32.0-36.0); Mean Corpuscular Volume 91.6 fL (80.0-100.0); Monocytes % (auto) 12.4 % (0.0-12.0); Neutrophils # (auto) 4.9 10 ^3/uL (1.6-8.6); Neutrophils % (auto) 58.6 % (37.0-80.0); Nucleated Red Blood Cells % 0.1 %; Red Blood Cells 5.08 10^6/uL (4.5-5.90); Red Cell Distribution Width 14.6 % (11.8-14.3); White Blood Cell 8.4 10^3/uL (4.4-10.8)
[2021-09-07 09:16] LABS: Albumin 3.5 g/dL (3.4-5.0); Calcium 8.9 mg/dL (8.5-10.1); Magnesium 2.4 mg/dL (1.6-2.6); Potassium 4.7 mmol/L (3.5-5.1)
[2021-09-07 09:31] LABS: BUN/Creatinine Ratio 15.7; Bilirubin, Total 0.5 mg/dL (0.2-1.0); Total Protein 6.6 g/dL (6.4-8.2)
[2021-09-07 12:00] VITALS: BP 124/81
== END 2021-09-07 15:16 | disposition home or self-care (01) ==
LOC: ER 08:00
DX: J44.1 Chronic obstructive pulmonary disease with (acute) exacerbation (principal); I10 Essential (primary) hypertension; F12.10 Cannabis abuse, uncomplicated; Z90.49 Acquired absence of other specified parts of digestive tract; Z87.891 Personal history of nicotine dependence
CPT/HCPCS: 36415; 71045; 80053; 82962; 83735; 84443; 84484; 85025; 85379; 93005; 94640; 96374; 99285; J2930; J7644

== ENCOUNTER 2021-11-09 11:39 | Emergency (ER) | payer MEDICAID ==
[~2021-11-09] VITALS: Ht 175.3 cm; Wt 73.5 kg
[2021-11-09 12:17] LABS: Basophils # (auto) 0.1 10 ^3/uL (0-0.2); Eosinophils # (auto) 0.2 10 ^3/uL (0-0.8); Eosinophils % (auto) 2.2 % (0.0-7.0); Hematocrit 46.5 % (41.0-53.0); Hemoglobin 15.9 g/dL (13.5-17.5); Lymphocytes # (auto) 2.1 10 ^3/uL (0.4-5.4); Lymphocytes % (auto) 21.6 % (10.0-50.0); Mean Corpuscular Hemoglobin 31.9 pg (28.0-32.0); Mean Corpuscular Hgb Conc. 34.1 g/dL (32.0-36.0); Mean Corpuscular Volume 93.4 fL (80.0-100.0); Monocytes # (auto) 0.7 10 ^3/uL (0-1.3); Monocytes % (auto) 7.5 % (0.0-12.0); Neutrophils # (auto) 6.7 10 ^3/uL (1.6-8.6); Neutrophils % (auto) 67.7 % (37.0-80.0); Nucleated Red Blood Cells % 0.1 %; Red Blood Cells 4.98 10^6/uL (4.5-5.90); White Blood Cell 9.9 10^3/uL (4.4-10.8)
[2021-11-09 12:55] LABS: Potassium 4.3 mmol/L (3.5-5.1)
[2021-11-09 13:06] LABS: Albumin 3.7 g/dL (3.4-5.0); BUN/Creatinine Ratio 13.5; Bilirubin, Total 0.7 mg/dL (0.2-1.0); Total Protein 6.9 g/dL (6.4-8.2)
[2021-11-09 19:48] LABS: Urine Bacteria NONE SEEN /hpf (None Seen); Urine Blood Negative /uL (Negative); Urine Mucus FEW (None Seen); Urine Specific Gravity 1.028 (1.001-1.035); Urine WBC 2 /hpf (0 - 3)
[2021-11-10 01:30] VITALS: BP 147/91
== END 2021-11-10 01:49 | disposition home or self-care (01) ==
LOC: ER 11:39
DX: R42 Dizziness and giddiness (principal); I10 Essential (primary) hypertension; J44.9 Chronic obstructive pulmonary disease, unspecified; Z90.49 Acquired absence of other specified parts of digestive tract; Z87.891 Personal history of nicotine dependence; Z79.899 Other long term (current) drug therapy; Z88.1 Allergy status to other antibiotic agents
CPT/HCPCS: 36415; 70450; 71045; 80053; 80320; 81001; 82140; 83880; 84484; 85025; 93005

== ENCOUNTER 2021-11-26 11:18 | Inpatient (IN) | payer MEDICAID ==
[~2021-11-26] VITALS: Ht 175.3 cm; Wt 76.8 kg
[2021-11-26 12:10] LABS: Basophils # (auto) 0.1 10 ^3/uL (0-0.2); Basophils % (auto) 1.1 % (0.0-2.0); Eosinophils # (auto) 0.1 10 ^3/uL (0-0.8); Eosinophils % (auto) 1.2 % (0.0-7.0); Hemoglobin 15.9 g/dL (13.5-17.5); Lymphocytes % (auto) 18.7 % (10.0-50.0); Mean Corpuscular Hemoglobin 31.8 pg (28.0-32.0); Mean Corpuscular Hgb Conc. 33.8 g/dL (32.0-36.0); Mean Corpuscular Volume 94.1 fL (80.0-100.0); Monocytes % (auto) 9.5 % (0.0-12.0); Neutrophils # (auto) 7.5 10 ^3/uL (1.6-8.6); Neutrophils % (auto) 69.5 % (37.0-80.0); Nucleated Red Blood Cells % 0.1 %; Red Cell Distribution Width 14.6 % (11.8-14.3); White Blood Cell 10.8 10^3/uL (4.4-10.8)
[2021-11-26 12:27] LABS: Calcium 9.1 mg/dL (8.5-10.1); Magnesium 2.7 mg/dL (1.6-2.6); Potassium 4.2 mmol/L (3.5-5.1)
[2021-11-26 12:31] LABS: BUN/Creatinine Ratio 13.9; Bilirubin, Total 0.6 mg/dL (0.2-1.0); Total Protein 7.2 g/dL (6.4-8.2)
[2021-11-26] MEDS ORDERED: ALBUTEROL SULF 2.5 MG/0.5ML(0.5%) NEB SOLN ONE (14:26)
[2021-11-26] MEDS ORDERED: IPRATROPIUM BROM 0.5 MG/2.5ML INH SOL ONE (14:26)
[2021-11-26] MEDS ORDERED: fentaNYL CITRATE 100 MCG/2 ML VL IV ONE ×4 (15:30→23:00)
[2021-11-26] MEDS ORDERED: cefTRIAXone 1GM/50ML D5W 50 ML IV ONE (15:45)
[2021-11-26] MEDS ORDERED: IOHEXOL 350 MG/ML 100ML IJ ONE (16:18)
[2021-11-26] MEDS ORDERED: NITROGLYCERIN 0.4 MG SL TAB SL PRN (18:15)
[2021-11-26] MEDS ORDERED: MORPHINE SULFATE INJ 2 MG/ml SYRG IV PRN ×2 (18:15→22:00)
[2021-11-26] MEDS ORDERED: LIDOCAINE 1%HCL (LOCAL ANESTH) 10 ML MDV ONE ×2 (20:19→20:40)
[2021-11-26] MEDS ORDERED: fentaNYL CITRATE 100 MCG/2 ML VL ONE (20:37)
[2021-11-26 20:45] VITALS: BP 117/81
[2021-11-26] MEDS ORDERED: PROMETHAZINE-DM 5 ML ORAL SYRUP PO PRN (22:00)
[2021-11-26] MEDS ORDERED: LORazepam 0.5 MG TAB PO PRN (22:00)
[2021-11-26] MEDS ORDERED: ONDANSETRON HCL 4 MG/2 ML VIAL IV PRN (22:00)
[2021-11-26] MEDS ORDERED: LABETALOL HCL 5 MG/ML 4ML SYRINGE IV PRN (22:00)
[2021-11-26] MEDS ORDERED: IPRATROPIUM BROM 0.5 MG/2.5ML INH SOL NEB ONE (22:00)
[2021-11-26] MEDS ORDERED: DOCUSATE SOD 100 MG CAP PO PRN (22:00)
[2021-11-26] MEDS ORDERED: hydrALAZINE HCL 20 MG/ML VL IV PRN (22:00)
[2021-11-26 22:16] LABS: Urine Bacteria NONE SEEN /hpf (None Seen); Urine Blood Negative /uL (Negative); Urine Mucus FEW (None Seen); Urine WBC <1 /hpf (0 - 3)
[2021-11-26 22:39] LABS: Urine Specific Gravity > 1.050 (1.001-1.035)
[2021-11-26] MEDS: AZITHROMYCIN 500MG/ 250ML 250 ML IV SCH (22:41)
[2021-11-26] MEDS: HYDROcodone-ACET 5/325MG TAB PO PRN (22:41)
[2021-11-26] MEDS: methylPREDNISolone SOD SUCC 40 MG/ML VL IV SCH (22:41)
[2021-11-26] MEDS: ALBUTEROL SULF 2.5 MG/0.5ML(0.5%) NEB SOLN NEB PRN (22:42)
[2021-11-26] MEDS: BUDESONIDE (INHALATION) 0.5 MG/2 ML NEB NEB SCH (22:42)
[2021-11-26] MEDS ORDERED: LIDOCAINE 1% HCL (LOCAL ANESTH.) INJ 20ML MDV IJ ONE (22:45)
[2021-11-26] MEDS: ACETYLCYSTEINE 10 %(100MG/ML) SOL 4ML NEB SCH (22:53)
[2021-11-27] VITALS (39 sets, daily range): BP systolic 101–143; BP diastolic 67–115
[2021-11-27 00:02] LABS: INR 1.19 (0.9-1.15); Partial Thromboplastin Time < 20.0 sec (23.6-33.0)
[2021-11-27 01:50] LABS: Magnesium 2.1 mg/dL (1.6-2.6); Phosphorus 1.7 mg/dL (2.5-4.90)
[2021-11-27] MEDS: IPRATROPIUM BROM 0.5 MG/2.5ML INH SOL NEB SCH ×6 (02:30→23:13)
[2021-11-27] MEDS: methylPREDNISolone SOD SUCC 40 MG/ML VL IV SCH ×3 (05:45→23:20)
[2021-11-27 06:56] LABS: Basophils # (auto) 0 10 ^3/uL (0-0.2); Basophils % (auto) 0.2 % (0.0-2.0); Eosinophils # (auto) 0 10 ^3/uL (0-0.8); Eosinophils % (auto) 0.1 % (0.0-7.0); Hematocrit 43.1 % (41.0-53.0); Lymphocytes # (auto) 0.5 10 ^3/uL (0.4-5.4); Lymphocytes % (auto) 3.8 % (10.0-50.0); Mean Corpuscular Hemoglobin 32.4 pg (28.0-32.0); Mean Corpuscular Hgb Conc. 34.7 g/dL (32.0-36.0); Mean Corpuscular Volume 93.2 fL (80.0-100.0); Monocytes # (auto) 0.3 10 ^3/uL (0-1.3); Monocytes % (auto) 2.4 % (0.0-12.0); Neutrophils # (auto) 12.3 10 ^3/uL (1.6-8.6); Neutrophils % (auto) 93.5 % (37.0-80.0); Red Blood Cells 4.62 10^6/uL (4.5-5.90); Red Cell Distribution Width 14.4 % (11.8-14.3); White Blood Cell 13.1 10^3/uL (4.4-10.8)
[2021-11-27 07:13] LABS: INR 1.11 (0.9-1.15); Partial Thromboplastin Time 24.8 sec (23.6-33.0)
[2021-11-27 07:18] LABS: Albumin 3.6 g/dL (3.4-5.0); Calcium 8.8 mg/dL (8.5-10.1); Potassium 4.3 mmol/L (3.5-5.1)
[2021-11-27 07:23] LABS: BUN/Creatinine Ratio 12.9; Bilirubin, Total 0.6 mg/dL (0.2-1.0); CRP High Sensitivity 0.3 mg/dL (< 0.3); Phosphorus 1.7 mg/dL (2.5-4.90); Total Protein 6.7 g/dL (6.4-8.2); Uric Acid 4.2 mg/dL (3.5-7.2)
[2021-11-27 09:05] LABS: Urine WBC None Seen /hpf (0 - 3)
[2021-11-27 09:22] LABS: Urine Bacteria NONE SEEN /hpf (None Seen); Urine Blood Negative /uL (Negative); Urine Mucus FEW (None Seen)
[2021-11-27 09:29] LABS: Urine Specific Gravity > 1.050 (1.001-1.035)
[2021-11-27 09:37] LABS: Benzodiazephine Screen, Urine NEGATIVE (NEGATIVE)
[2021-11-27] MEDS: ENOXAPARIN SOD 40 MG/0.4 ML SYRINGE SC SCH (09:38)
[2021-11-27] MEDS: FAMOTIDINE (10MG/ML) 2ML VL IV SCH (10:00)
[2021-11-27 10:01] LABS: Alcohol, Urine < 3.0 mg/dL (0-10); Amphetamine Screen, Urine NEGATIVE (NEGATIVE); Barbiturate Scree,Urine NEGATIVE (NEGATIVE); Cannabinoid Screen, Urine POSITIVE (NEGATIVE); Cocaine Screen, Urine NEGATIVE (NEGATIVE); Opiate Scree,Urine POSITIVE (NEGATIVE); Phencyclidine Screen, Urine NEGATIVE (NEGATIVE)
[2021-11-27] MEDS: ACETYLCYSTEINE 10 %(100MG/ML) SOL 4ML NEB SCH ×3 (10:04→18:56)
[2021-11-27] MEDS: BUDESONIDE (INHALATION) 0.5 MG/2 ML NEB NEB SCH ×2 (10:04→18:56)
[2021-11-27] MEDS ORDERED: METOPROLOL TARTRATE 1MG/1ML-5ML VIAL IV PRN (15:15)
[2021-11-27] MEDS ORDERED: METOPROLOL TARTRATE 25 MG TAB PO ONE (15:15)
[2021-11-27] MEDS ORDERED: CALC0.0020 EX (17:11)
[2021-11-27] MEDS ORDERED: FLUT1AER3 IN (17:11)
[2021-11-27] MEDS ORDERED: ASPI-543 PO (17:11)
[2021-11-27] MEDS ORDERED: LACT10SO3 PO (17:11)
[2021-11-27] MEDS: ALBUTEROL SULF 2.5 MG/0.5ML(0.5%) NEB SOLN NEB PRN ×2 (18:56→23:13)
[2021-11-27] MEDS: AZITHROMYCIN 500MG/ 250ML 250 ML IV SCH (23:21)
[2021-11-27] MEDS: METOPROLOL TARTRATE 25 MG TAB PO SCH (23:24)
[2021-11-27] MEDS: HYDROcodone-ACET 5/325MG TAB PO PRN (23:46)
[2021-11-28] VITALS (25 sets, daily range): BP systolic 93–134; BP diastolic 46–81
[2021-11-28] MEDS: IPRATROPIUM BROM 0.5 MG/2.5ML INH SOL NEB SCH ×6 (02:52→23:47)
[2021-11-28] MEDS: ALBUTEROL SULF 2.5 MG/0.5ML(0.5%) NEB SOLN NEB PRN ×4 (02:52→23:47)
[2021-11-28] MEDS: methylPREDNISolone SOD SUCC 40 MG/ML VL IV SCH ×3 (06:00→22:20)
[2021-11-28] MEDS: ACETYLCYSTEINE 10 %(100MG/ML) SOL 4ML NEB SCH ×2 (06:13→15:04)
[2021-11-28] MEDS: BUDESONIDE (INHALATION) 0.5 MG/2 ML NEB NEB SCH ×2 (06:13→23:47)
[2021-11-28] MEDS ORDERED: [UNRECOGNIZED DRUG - CODE] PO (06:45)
[2021-11-28 07:01] LABS: Hematocrit 40.4 % (41.0-53.0); Hemoglobin 13.5 g/dL (13.5-17.5); Mean Corpuscular Hemoglobin 31.4 pg (28.0-32.0); Mean Corpuscular Hgb Conc. 33.4 g/dL (32.0-36.0); Mean Corpuscular Volume 94.1 fL (80.0-100.0); Red Cell Distribution Width 14.6 % (11.8-14.3)
[2021-11-28 07:05] LABS: White Blood Cell 32.3 10^3/uL (4.4-10.8)
[2021-11-28] MEDS ORDERED: LIDOCAINE 1% (LOCAL ANESTH.) PF 5ml SDV ONE (07:21)
[2021-11-28] MEDS ORDERED: BUPIVACAINE W/ EPINEPH 0.5% INJ 50ML MDV IJ ONE (07:21)
[2021-11-28 08:05] LABS: Potassium 5.2 mmol/L (3.5-5.1)
[2021-11-28 08:09] LABS: Albumin 3.5 g/dL (3.4-5.0); BUN/Creatinine Ratio 17.9; Calcium 9.2 mg/dL (8.5-10.1)
[2021-11-28 08:12] LABS: Bilirubin, Total 0.8 mg/dL (0.2-1.0); Total Protein 6.3 g/dL (6.4-8.2)
[2021-11-28] MEDS ORDERED: ceFAZolin 1GM/50ML 100 ML IV ONE (08:47)
[2021-11-28] MEDS ORDERED: DexAMETHasone SOD PHOS 10MG/1ML VIAL INJ ONE (09:24)
[2021-11-28] MEDS ORDERED: fentaNYL CITRATE 100 MCG/2 ML VL ONE (09:24)
[2021-11-28] MEDS ORDERED: MIDAZOLAM HCL 2MG/2ML 2ml VIAL (1mg/ml) ONE (09:24)
[2021-11-28] MEDS ORDERED: PROPOFOL 10 MG/ML 20 ML IV ONE (09:24)
[2021-11-28] MEDS ORDERED: MEPERIDINE HCL (25 MG/ML) 1ML VIAL ONE (09:25)
[2021-11-28] MEDS ORDERED: PHENYLEPHRINE HCL 10 MG/ML VL IV ONE (09:25)
[2021-11-28] MEDS ORDERED: LABETALOL HCL 5 MG/ML 4ML SYRINGE IV PRN (10:00)
[2021-11-28] MEDS ORDERED: MORPHINE SULFATE 4 MG/ML SYR/VIAL IV PRN (10:00)
[2021-11-28] MEDS ORDERED: MIDAZOLAM HCL 2MG/2ML 2ml VIAL (1mg/ml) IV PRN (10:00)
[2021-11-28] MEDS ORDERED: ePHEDrine SULFATE 50 MG/ML AMP IV PRN (10:00)
[2021-11-28] MEDS ORDERED: HYDROmorphone HCL 2 MG/ML VL/or syr IV PRN (10:00)
[2021-11-28] MEDS ORDERED: ONDANSETRON HCL 4 MG/2 ML VIAL IV PRN (10:00)
[2021-11-28] MEDS ORDERED: hydrALAZINE HCL 20 MG/ML VL IV PRN (10:00)
[2021-11-28] MEDS: METOPROLOL TARTRATE 25 MG TAB PO SCH ×2 (11:42→22:21)
[2021-11-28] MEDS: ENOXAPARIN SOD 40 MG/0.4 ML SYRINGE SC SCH (12:47)
[2021-11-28] MEDS: FAMOTIDINE (10MG/ML) 2ML VL IV SCH (12:47)
[2021-11-28 13:40] LABS: Band Neutrophils % (manual) 0; Basophils % (manual) 0 (0.0-2.0); Blast Cells 0; Eosinophils % (manual) 0 (0-7); Metamyelocytes % 0; Myelocytes % 0; Promyelocytes % 0; Reactive Lymphocytes 0
[2021-11-28 13:41] LABS: Lymphocytes % (manual) 4 (10.0-50.0); Monocytes % (manual) 5 (0-12)
[2021-11-28] MEDS ORDERED: HYDROmorphone HCL 2 MG/ML VL/or syr ONE (15:48)
[2021-11-28] MEDS: AZITHROMYCIN 500MG/ 250ML 250 ML IV SCH (22:21)
[2021-11-28] MEDS: HYDROmorphone HCL 2 MG/ML VL/or syr IV PRN (22:30)
[2021-11-29] VITALS (14 sets, daily range): BP systolic 106–141; BP diastolic 64–91
[2021-11-29] MEDS: ALBUTEROL SULF 2.5 MG/0.5ML(0.5%) NEB SOLN NEB PRN ×3 (02:45→22:02)
[2021-11-29] MEDS: IPRATROPIUM BROM 0.5 MG/2.5ML INH SOL NEB SCH ×6 (02:45→22:02)
[2021-11-29 04:46] LABS: Hematocrit 39.8 % (41.0-53.0); Hemoglobin 13.6 g/dL (13.5-17.5); Mean Corpuscular Hgb Conc. 34.2 g/dL (32.0-36.0); Mean Corpuscular Volume 93.5 fL (80.0-100.0); Red Blood Cells 4.26 10^6/uL (4.5-5.90); Red Cell Distribution Width 14.6 % (11.8-14.3); White Blood Cell 29.8 10^3/uL (4.4-10.8)
[2021-11-29 04:54] LABS: Basophils % (manual) 0 (0.0-2.0); Blast Cells 0; Metamyelocytes % 0; Myelocytes % 0; Promyelocytes % 0; Reactive Lymphocytes 0
[2021-11-29 05:01] LABS: BUN/Creatinine Ratio 25.8; Calcium 9.1 mg/dL (8.5-10.1); Potassium 5.1 mmol/L (3.5-5.1)
[2021-11-29] MEDS: methylPREDNISolone SOD SUCC 40 MG/ML VL IV SCH ×3 (05:07→22:02)
[2021-11-29] MEDS: HYDROmorphone HCL 2 MG/ML VL/or syr IV PRN ×5 (05:43→22:01)
[2021-11-29 07:00] LABS: Band Neutrophils % (manual) 5; Eosinophils % (manual) 1 (0-7); Lymphocytes % (manual) 2 (10.0-50.0); Monocytes % (manual) 7 (0-12)
[2021-11-29] MEDS: ENOXAPARIN SOD 40 MG/0.4 ML SYRINGE SC SCH (09:47)
[2021-11-29] MEDS: FAMOTIDINE (10MG/ML) 2ML VL IV SCH (09:47)
[2021-11-29] MEDS: METOPROLOL TARTRATE 25 MG TAB PO SCH ×2 (09:47→23:00)
[2021-11-29] MEDS: BUDESONIDE (INHALATION) 0.5 MG/2 ML NEB NEB SCH ×2 (10:13→19:03)
[2021-11-29] MEDS: AZITHROMYCIN 500MG/ 250ML 250 ML IV SCH (22:02)
[2021-11-30] VITALS (24 sets, daily range): BP systolic 111–146; BP diastolic 63–91
[2021-11-30] MEDS: HYDROmorphone HCL 2 MG/ML VL/or syr IV PRN ×8 (01:02→23:20)
[2021-11-30] MEDS: IPRATROPIUM BROM 0.5 MG/2.5ML INH SOL NEB SCH ×6 (02:00→22:15)
[2021-11-30] MEDS: methylPREDNISolone SOD SUCC 40 MG/ML VL IV SCH ×3 (06:35→21:45)
[2021-11-30] MEDS: BUDESONIDE (INHALATION) 0.5 MG/2 ML NEB NEB SCH ×2 (06:38→18:39)
[2021-11-30] MEDS: ALBUTEROL SULF 2.5 MG/0.5ML(0.5%) NEB SOLN NEB PRN ×4 (06:38→18:38)
[2021-11-30] MEDS: FAMOTIDINE (10MG/ML) 2ML VL IV SCH (09:41)
[2021-11-30] MEDS: METOPROLOL TARTRATE 25 MG TAB PO SCH ×2 (09:41→21:46)
[2021-11-30] MEDS: ENOXAPARIN SOD 40 MG/0.4 ML SYRINGE SC SCH (09:43)
[2021-11-30] MEDS ORDERED: SENNA 8.6 MG TAB PO PRN (11:00)
[2021-11-30] MEDS: AZITHROMYCIN 500MG/ 250ML 250 ML IV SCH (21:46)
[2021-11-30] MEDS: traZODone HCL 50 MG TAB PO SCH (21:46)
[2021-11-30] MEDS: PSYLLIUM PWD 5.8GM PKG PO SCH (21:47)
[2021-11-30] MEDS: CALCIPOTRIENE 0.005% TOP SCH (21:47)
[2021-12-01] VITALS (17 sets, daily range): BP systolic 115–148; BP diastolic 62–105
[2021-12-01] MEDS: IPRATROPIUM BROM 0.5 MG/2.5ML INH SOL NEB SCH ×3 (02:15→22:30)
[2021-12-01] MEDS: HYDROmorphone HCL 2 MG/ML VL/or syr IV PRN ×4 (03:54→16:33)
[2021-12-01 05:30] LABS: Basophils # (auto) 0.1 10 ^3/uL (0-0.2); Basophils % (auto) 0.6 % (0.0-2.0); Eosinophils # (auto) 0 10 ^3/uL (0-0.8); Hematocrit 36.9 % (41.0-53.0); Hemoglobin 12.7 g/dL (13.5-17.5); Lymphocytes # (auto) 0.7 10 ^3/uL (0.4-5.4); Lymphocytes % (auto) 4.1 % (10.0-50.0); Mean Corpuscular Hgb Conc. 34.3 g/dL (32.0-36.0); Mean Corpuscular Volume 93.1 fL (80.0-100.0); Monocytes # (auto) 1.4 10 ^3/uL (0-1.3); Monocytes % (auto) 8.7 % (0.0-12.0); Neutrophils # (auto) 14.2 10 ^3/uL (1.6-8.6); Neutrophils % (auto) 86.6 % (37.0-80.0); Red Blood Cells 3.97 10^6/uL (4.5-5.90); Red Cell Distribution Width 14.5 % (11.8-14.3); White Blood Cell 16.4 10^3/uL (4.4-10.8)
[2021-12-01] MEDS: methylPREDNISolone SOD SUCC 40 MG/ML VL IV SCH ×2 (05:32→13:32)
[2021-12-01 05:45] LABS: Potassium 5.4 mmol/L (3.5-5.1)
[2021-12-01 05:53] LABS: BUN/Creatinine Ratio 31.3; Calcium 9.1 mg/dL (8.5-10.1)
[2021-12-01] MEDS: FAMOTIDINE (10MG/ML) 2ML VL IV SCH (10:17)
[2021-12-01] MEDS: METOPROLOL TARTRATE 25 MG TAB PO SCH ×2 (10:17→21:05)
[2021-12-01] MEDS: PSYLLIUM PWD 5.8GM PKG PO SCH ×2 (10:17→21:06)
[2021-12-01] MEDS: CALCIPOTRIENE 0.005% TOP SCH ×2 (10:18→21:06)
[2021-12-01] MEDS: ENOXAPARIN SOD 40 MG/0.4 ML SYRINGE SC SCH (10:18)
[2021-12-01 12:05] LABS: BUN/Creatinine Ratio 35.1; Potassium 4.6 mmol/L (3.5-5.1)
[2021-12-01] MEDS: ALBUTEROL SULF 2.5 MG/0.5ML(0.5%) NEB SOLN NEB PRN ×2 (18:24→22:30)
[2021-12-01] MEDS: BUDESONIDE (INHALATION) 0.5 MG/2 ML NEB NEB SCH (18:24)
[2021-12-01] MEDS: AZITHROMYCIN 500MG/ 250ML 250 ML IV SCH (21:04)
[2021-12-01] MEDS: traZODone HCL 50 MG TAB PO SCH (21:05)
[2021-12-02] VITALS (11 sets, daily range): BP systolic 100–144; BP diastolic 49–87
[2021-12-02] MEDS: ALBUTEROL SULF 2.5 MG/0.5ML(0.5%) NEB SOLN NEB PRN ×4 (02:14→21:40)
[2021-12-02] MEDS: IPRATROPIUM BROM 0.5 MG/2.5ML INH SOL NEB SCH ×7 (02:14→21:40)
[2021-12-02] MEDS ORDERED: HALOPERIDOL LACTATE 5 MG/ML INJ VIAL ONE (04:03)
[2021-12-02] MEDS ORDERED: LORazepam 2MG/ML-1ML VIAL ONE (04:04)
[2021-12-02] MEDS ORDERED: HALOPERIDOL LACTATE 5 MG/ML INJ VIAL IM ONE (04:15)
[2021-12-02] MEDS ORDERED: LORazepam 2MG/ML-1ML VIAL IM ONE (04:15)
[2021-12-02] MEDS: BUDESONIDE (INHALATION) 0.5 MG/2 ML NEB NEB SCH ×3 (05:51→18:19)
[2021-12-02] MEDS: FAMOTIDINE (10MG/ML) 2ML VL IV SCH (09:16)
[2021-12-02] MEDS: ENOXAPARIN SOD 40 MG/0.4 ML SYRINGE SC SCH ×2 (09:17→09:23)
[2021-12-02] MEDS: METOPROLOL TARTRATE 25 MG TAB PO SCH ×3 (09:17→21:52)
[2021-12-02] MEDS: PSYLLIUM PWD 5.8GM PKG PO SCH ×3 (09:17→21:53)
[2021-12-02] MEDS: CALCIPOTRIENE 0.005% TOP SCH ×2 (09:18→22:00)
[2021-12-02] MEDS: HYDROmorphone HCL 2 MG/ML VL/or syr IV PRN ×2 (11:47→18:44)
[2021-12-02] MEDS: traZODone HCL 50 MG TAB PO SCH (21:51)
[2021-12-02] MEDS: AZITHROMYCIN 500MG/ 250ML 250 ML IV SCH (21:53)
[2021-12-02] MEDS: HYDROcodone-ACET 5/325MG TAB PO PRN (22:01)
[2021-12-03] VITALS (11 sets, daily range): BP systolic 91–137; BP diastolic 55–83
[2021-12-03] MEDS: HYDROmorphone HCL 2 MG/ML VL/or syr IV PRN ×2 (00:59→09:14)
[2021-12-03] MEDS: ALBUTEROL SULF 2.5 MG/0.5ML(0.5%) NEB SOLN NEB PRN ×5 (01:56→18:38)
[2021-12-03] MEDS: IPRATROPIUM BROM 0.5 MG/2.5ML INH SOL NEB SCH ×6 (01:56→22:12)
[2021-12-03] MEDS: PSYLLIUM PWD 5.8GM PKG PO SCH ×2 (09:07→22:52)
[2021-12-03] MEDS: METOPROLOL TARTRATE 25 MG TAB PO SCH ×2 (09:10→22:45)
[2021-12-03] MEDS: ENOXAPARIN SOD 40 MG/0.4 ML SYRINGE SC SCH (09:15)
[2021-12-03] MEDS: FAMOTIDINE (10MG/ML) 2ML VL IV SCH (09:15)
[2021-12-03] MEDS: CALCIPOTRIENE 0.005% TOP SCH ×2 (10:00→22:00)
[2021-12-03] MEDS: BUDESONIDE (INHALATION) 0.5 MG/2 ML NEB NEB SCH ×2 (10:00→18:38)
[2021-12-03 13:53] LABS: BUN/Creatinine Ratio 18.5; Calcium 8.4 mg/dL (8.5-10.1); Potassium 4.6 mmol/L (3.5-5.1)
[2021-12-03] MEDS: traZODone HCL 50 MG TAB PO SCH (22:45)
[2021-12-03] MEDS: AZITHROMYCIN 500MG/ 250ML 250 ML IV SCH (22:47)
[2021-12-04] VITALS (19 sets, daily range): BP systolic 98–128; BP diastolic 59–82
[2021-12-04] MEDS: IPRATROPIUM BROM 0.5 MG/2.5ML INH SOL NEB SCH ×6 (02:00→21:48)
[2021-12-04 05:51] LABS: Basophils # (auto) 0 10 ^3/uL (0-0.2); Basophils % (auto) 0.3 % (0.0-2.0); Eosinophils # (auto) 0.3 10 ^3/uL (0-0.8); Hematocrit 40.9 % (41.0-53.0); Hemoglobin 14.1 g/dL (13.5-17.5); Lymphocytes # (auto) 1.6 10 ^3/uL (0.4-5.4); Lymphocytes % (auto) 10.5 % (10.0-50.0); Mean Corpuscular Hemoglobin 31.9 pg (28.0-32.0); Mean Corpuscular Hgb Conc. 34.4 g/dL (32.0-36.0); Mean Corpuscular Volume 92.7 fL (80.0-100.0); Neutrophils # (auto) 11.2 10 ^3/uL (1.6-8.6); Neutrophils % (auto) 74.2 % (37.0-80.0); Red Blood Cells 4.42 10^6/uL (4.5-5.90); Red Cell Distribution Width 13.9 % (11.8-14.3); White Blood Cell 15.1 10^3/uL (4.4-10.8)
[2021-12-04 06:16] LABS: BUN/Creatinine Ratio 17.8; Calcium 8.2 mg/dL (8.5-10.1); Magnesium 2.6 mg/dL (1.6-2.6); Potassium 4.2 mmol/L (3.5-5.1)
[2021-12-04] MEDS: ALBUTEROL SULF 2.5 MG/0.5ML(0.5%) NEB SOLN NEB PRN ×3 (06:58→14:11)
[2021-12-04] MEDS: CALCIPOTRIENE 0.005% TOP SCH ×2 (09:31→22:00)
[2021-12-04] MEDS: PSYLLIUM PWD 5.8GM PKG PO SCH ×2 (09:31→20:56)
[2021-12-04] MEDS: BUDESONIDE (INHALATION) 0.5 MG/2 ML NEB NEB SCH ×2 (10:08→18:42)
[2021-12-04] MEDS: METOPROLOL TARTRATE 25 MG TAB PO SCH ×2 (10:30→22:00)
[2021-12-04] MEDS: FAMOTIDINE (10MG/ML) 2ML VL IV SCH (11:00)
[2021-12-04] MEDS: ENOXAPARIN SOD 40 MG/0.4 ML SYRINGE SC SCH (15:00)
[2021-12-04] MEDS: HYDROcodone-ACET 5/325MG TAB PO PRN (22:04)
[2021-12-04] MEDS: traZODone HCL 50 MG TAB PO SCH (23:07)
[2021-12-04] MEDS: AZITHROMYCIN 500MG/ 250ML 250 ML IV SCH (23:07)
[2021-12-05] VITALS (20 sets, daily range): BP systolic 96–121; BP diastolic 53–88
[2021-12-05] MEDS ORDERED: WITCH HAZEL-GLYCERIN PAD TOP PRN (00:30)
[2021-12-05] MEDS ORDERED: WITCH HAZEL-GLYCERIN PAD TOP ONE (00:56)
[2021-12-05] MEDS: IPRATROPIUM BROM 0.5 MG/2.5ML INH SOL NEB SCH ×6 (02:00→22:34)
[2021-12-05] MEDS: ALBUTEROL SULF 2.5 MG/0.5ML(0.5%) NEB SOLN NEB PRN ×5 (06:47→22:34)
[2021-12-05] MEDS: BUDESONIDE (INHALATION) 0.5 MG/2 ML NEB NEB SCH ×2 (06:48→19:49)
[2021-12-05] MEDS: METOPROLOL TARTRATE 25 MG TAB PO SCH ×2 (09:57→22:00)
[2021-12-05] MEDS: FAMOTIDINE (10MG/ML) 2ML VL IV SCH (09:57)
[2021-12-05] MEDS: ENOXAPARIN SOD 40 MG/0.4 ML SYRINGE SC SCH (09:58)
[2021-12-05] MEDS: CALCIPOTRIENE 0.005% TOP SCH ×2 (09:58→21:53)
[2021-12-05] MEDS: PSYLLIUM PWD 5.8GM PKG PO SCH ×2 (09:58→22:15)
[2021-12-05 13:44] LABS: INR 1.06 (0.9-1.15); Partial Thromboplastin Time 26.5 sec (23.6-33.0)
[2021-12-05] MEDS: traZODone HCL 50 MG TAB PO SCH (21:57)
[2021-12-05] MEDS: HYDROcodone-ACET 5/325MG TAB PO PRN (21:57)
[2021-12-05] MEDS: AZITHROMYCIN 500MG/ 250ML 250 ML IV SCH (22:15)
[2021-12-06] VITALS: BP 101/71
[2021-12-06 01:00] VITALS: BP 111/78
[2021-12-06 02:00] VITALS: BP 111/76
[2021-12-06] MEDS: IPRATROPIUM BROM 0.5 MG/2.5ML INH SOL NEB SCH (02:28)
[2021-12-06] MEDS: ALBUTEROL SULF 2.5 MG/0.5ML(0.5%) NEB SOLN NEB PRN (02:28)
[2021-12-06 03:00] VITALS: BP 115/74
[2021-12-06 04:00] VITALS: BP 103/67
[2021-12-06 06:00] VITALS: BP 97/62
== END 2021-12-06 07:00 | disposition short-term general hospital (02) | DRG 133 ==
LOC: ER 11:18 → TELE 18:13 → TELE-WESTW 23:36 → ICU CENTRL 11-27 14:10 → DOU IN ICU 11-27 14:14
PROVIDERS: ADMIT Hospitalist; ATTEND Internal Medicine
PROC: 0W9B30Z Drainage of Left Pleural Cavity with Drainage Device, Percutaneous Approach (ICD-10-PCS; 2021-11-26)
PROC: 0W9B40Z Drainage of Left Pleural Cavity with Drainage Device, Percutaneous Endoscopic Approach (ICD-10-PCS; principal; 2021-11-28 09:30)
PROC: 05H933Z Insertion of Infusion Device into Right Brachial Vein, Percutaneous Approach (ICD-10-PCS; 2021-11-30)
PROC: B54MZZA Ultrasonography of Right Upper Extremity Veins, Guidance (ICD-10-PCS; 2021-11-30)
DX: J96.21 Acute and chronic respiratory failure with hypoxia (principal); R65.11 Systemic inflammatory response syndrome (SIRS) of non-infectious origin with acute organ dysfunction; J93.0 Spontaneous tension pneumothorax; C22.0 Liver cell carcinoma; I27.9 Pulmonary heart disease, unspecified; J44.1 Chronic obstructive pulmonary disease with (acute) exacerbation; J98.2 Interstitial emphysema; D72.829 Elevated white blood cell count, unspecified; I11.9 Hypertensive heart disease without heart failure; B18.2 Chronic viral hepatitis C; C61 Malignant neoplasm of prostate; F41.9 Anxiety disorder, unspecified; G89.4 Chronic pain syndrome; K74.60 Unspecified cirrhosis of liver; J98.11 Atelectasis; E87.5 Hyperkalemia; F17.200 Nicotine dependence, unspecified, uncomplicated; Z20.822 Contact with and (suspected) exposure to COVID-19; Z79.899 Other long term (current) drug therapy; Z80.0 Family history of malignant neoplasm of digestive organs; Z85.01 Personal history of malignant neoplasm of esophagus; Z85.05 Personal history of malignant neoplasm of liver; Z85.46 Personal history of malignant neoplasm of prostate; Z91.19 Patient's noncompliance with other medical treatment and regimen; Z90.79 Acquired absence of other genital organ(s); Z90.49 Acquired absence of other specified parts of digestive tract; Z88.1 Allergy status to other antibiotic agents
CPT/HCPCS: 32551; 36415; 36600; 71045; 71046; 71250; 71275; 74176; 80048; 80053; 80061; 80307; 81001; 82550; 82728; 82805; 83036; 83615; 83690; 83735; 83880; 84100; 84156; 84300; 84439; 84443; 84484; 84550; 85007; 85025; 85027; 85379; 85610; 85652; 85730; 86141; 86850; 86900; 86901; 87040; 87070; 87081; 87086; 87205; 93005; 94640; 96365; 96375; 99291; G0378; J0690; J0696; J1100; J2001; J2250; J2405; J2704; J3490

== ENCOUNTER 2022-10-23 16:20 | Emergency (ER) | payer MEDICARE, MEDICAID ==
[~2022-10-23] VITALS: Ht 175.3 cm; Wt 80.0 kg
[~2022-10-23 16:20] MED LIST changes: +ASPI-543 PO; +CALC0.0020 EX; +FLUT1AER3 IN; +LACT10SO3 PO; +[UNRECOGNIZED DRUG - CODE] PO
[2022-10-23 16:57] LABS: Basophils # (auto) 0.1 10 ^3/uL (0-0.2); Eosinophils # (auto) 0.1 10 ^3/uL (0-0.8); Eosinophils % (auto) 1.1 % (0.0-7.0); Hematocrit 46.6 % (41.0-53.0); Hemoglobin 15.5 g/dL (13.5-17.5); Lymphocytes # (auto) 2.1 10 ^3/uL (0.4-5.4); Lymphocytes % (auto) 15.4 % (10.0-50.0); Mean Corpuscular Hemoglobin 30.9 pg (28.0-32.0); Mean Corpuscular Hgb Conc. 33.2 g/dL (32.0-36.0); Mean Corpuscular Volume 93.2 fL (80.0-100.0); Monocytes # (auto) 1.5 10 ^3/uL (0-1.3); Monocytes % (auto) 11.3 % (0.0-12.0); Neutrophils # (auto) 9.7 10 ^3/uL (1.6-8.6); Neutrophils % (auto) 71.2 % (37.0-80.0); Red Blood Cells 5.01 10^6/uL (4.5-5.90); Red Cell Distribution Width 14.3 % (11.8-14.3); White Blood Cell 13.6 10^3/uL (4.4-10.8)
[2022-10-23 17:19] LABS: Albumin 3.6 g/dL (3.4-5.0); Calcium 9.3 mg/dL (8.5-10.1); Potassium 4.2 mmol/L (3.5-5.1)
[2022-10-23 17:24] LABS: BUN/Creatinine Ratio 10.7 (10.0-20.0); Bilirubin, Total 0.6 mg/dL (0.2-1.0); Total Protein 6.9 g/dL (6.4-8.2)
[2022-10-23 19:25] VITALS: BP 128/83
== END 2022-10-23 19:27 | disposition home or self-care (01) ==
LOC: ER 16:20
DX: R07.89 Other chest pain (principal); J44.9 Chronic obstructive pulmonary disease, unspecified; I25.2 Old myocardial infarction; I12.9 Hypertensive chronic kidney disease with stage 1 through stage 4 chronic kidney disease, or unspecified chronic kidney disease; N18.9 Chronic kidney disease, unspecified; F17.210 Nicotine dependence, cigarettes, uncomplicated; Z90.49 Acquired absence of other specified parts of digestive tract; Z79.82 Long term (current) use of aspirin; Z79.899 Other long term (current) drug therapy; Z88.1 Allergy status to other antibiotic agents
CPT/HCPCS: 36415; 71045; 80053; 83880; 84484; 85025; 93005

== ENCOUNTER 2023-01-04 12:38 | Emergency (ER) | payer MEDICARE, MEDICAID ==
[~2023-01-04] VITALS: Ht 175.3 cm; Wt 79.3 kg
[~2023-01-04 12:38] MED LIST changes: +POTA-228 PO; -POTA10TA32 PO
[2023-01-04 13:47] LABS: Albumin 3.7 g/dL (3.4-5.0); Calcium 9.2 mg/dL (8.5-10.1); Potassium 4.7 mmol/L (3.5-5.1)
[2023-01-04 13:51] LABS: BUN/Creatinine Ratio 9.7 (10.0-20.0); Bilirubin, Total 0.5 mg/dL (0.2-1.0); Total Protein 7.4 g/dL (6.4-8.2)
[2023-01-04 14:23] LABS: Basophils # (auto) 0.1 10 ^3/uL (0-0.2); Basophils % (auto) 1.1 % (0.0-2.0); Eosinophils # (auto) 0.3 10 ^3/uL (0-0.8); Eosinophils % (auto) 2.7 % (0.0-7.0); Hematocrit 46.3 % (41.0-53.0); Hemoglobin 15.5 g/dL (13.5-17.5); Lymphocytes # (auto) 1.5 10 ^3/uL (0.4-5.4); Lymphocytes % (auto) 14.7 % (10.0-50.0); Mean Corpuscular Hgb Conc. 33.4 g/dL (32.0-36.0); Mean Corpuscular Volume 92.7 fL (80.0-100.0); Monocytes # (auto) 1.2 10 ^3/uL (0-1.3); Monocytes % (auto) 11.8 % (0.0-12.0); Neutrophils # (auto) 7.1 10 ^3/uL (1.6-8.6); Neutrophils % (auto) 69.7 % (37.0-80.0); Nucleated Red Blood Cells % 0.1 %; Red Cell Distribution Width 15.6 % (11.8-14.3); White Blood Cell 10.2 10^3/uL (4.4-10.8)
[2023-01-04 15:26] VITALS: BP 125/97; PULSE 65; RESP 17; TEMP 98.7; O2SAT 95
== END 2023-01-04 15:28 | disposition home or self-care (01) ==
LOC: ER 12:38
DX: Z00.00 Encounter for general adult medical examination without abnormal findings (principal); R79.9 Abnormal finding of blood chemistry, unspecified; J44.9 Chronic obstructive pulmonary disease, unspecified; I12.9 Hypertensive chronic kidney disease with stage 1 through stage 4 chronic kidney disease, or unspecified chronic kidney disease; N18.9 Chronic kidney disease, unspecified; I25.2 Old myocardial infarction; F17.210 Nicotine dependence, cigarettes, uncomplicated; Z90.49 Acquired absence of other specified parts of digestive tract; Z88.1 Allergy status to other antibiotic agents
CPT/HCPCS: 36415; 80053; 83605; 83735; 85025

== ENCOUNTER 2023-10-05 16:45 | Inpatient (IN) | payer MEDICARE, MEDICAID ==
[~2023-10-05] VITALS: Ht 175.3 cm; Wt 84.9 kg
[2023-10-05 18:57] LABS: Hematocrit 47.8 % (41.0-53.0); Hemoglobin 16.2 g/dL (13.5-17.5); Mean Corpuscular Hemoglobin 31.5 pg (28.0-32.0); Mean Corpuscular Volume 92.8 fL (80.0-100.0); Red Blood Cells 5.15 10^6/uL (4.5-5.90); Red Cell Distribution Width 15.3 % (11.8-14.3); White Blood Cell 25.4 10^3/uL (4.4-10.8)
[2023-10-05 19:00] LABS: Basophils % (manual) 0 (0.0-2.0); Blast Cells 0; Metamyelocytes % 0; Myelocytes % 0; Promyelocytes % 0; Reactive Lymphocytes 0
[2023-10-05 19:14] LABS: Alanine Aminotransferase 29 U/L (7-40); Albumin 4.2 g/dL (3.2-4.8); Alkaline Phosphatase 104 U/L (46-116); Anion Gap 6 (5-15); Aspartate Aminotransferase 25 U/L (13-40); BUN/Creatinine Ratio 16.4 (10.0-20.0); Bilirubin, Total 1.6 mg/dL (0.2-1.0); Blood Urea Nitrogen 20 mg/dL (9-23); Calcium 9.8 mg/dL (8.7-10.4); Carbon Dioxide 24 mmol/L (20-30); Chloride 106 mmol/L (98-107); Glucose 103 mg/dL (74-106); Lipase 26 U/L (12-53); Potassium 4.2 mmol/L (3.5-5.1); Sodium 136 mmol/L (136-145); Total Protein 6.5 g/dL (5.7-8.2)
[2023-10-05 19:17] LABS: Band Neutrophils % (manual) 7; Eosinophils % (manual) 1 (0-7); Lymphocytes % (manual) 5 (10.0-50.0); Monocytes % (manual) 6 (0-12); Platelet Estimate Decreased
[2023-10-05 20:00] VITALS: PULSE 96; RESP 18; O2SAT 96
[2023-10-05 22:05] LABS: Urine Bacteria None Seen /hpf (None Seen)
[2023-10-05] MEDS ORDERED: VANCOMYCIN PER PHARMACY 0 MG IV SCH (22:15)
[2023-10-05 22:17] LABS: Urine Blood Negative /uL (Negative); Urine Clarity Clear (Clear); Urine Color Yellow (Yellow); Urine Hyaline Cast FEW /lpf (0 - 2); Urine Mucus FEW (None Seen); Urine Protein, UAD 2+ (Negative); Urine Specific Gravity 1.025 (1.001-1.035); Urine Urobilinogen Normal (Negative); Urine WBC 1 /hpf (0 - 3); Urine pH 5.5 (5.0-9.0)
[2023-10-05] MEDS: PIPERACILLIN-TAZOB 3.375GM 100 ML IV ONE (22:28)
[2023-10-05] MEDS ORDERED: DOCUSATE SOD 100 MG CAP PO PRN (22:45)
[2023-10-05] MEDS ORDERED: hydrALAZINE HCL 20 MG/ML VL IV PRN (22:45)
[2023-10-05] MEDS: SODIUM CHLORIDE 0.9% 1,000 ML IV SCH (22:45)
[2023-10-05] MEDS ORDERED: MORPHINE SULFATE INJ 2 MG/ml SYRG IV PRN (23:30)
[2023-10-05] MEDS ORDERED: NITROGLYCERIN 0.4 MG SL TAB SL PRN (23:30)
[2023-10-06] VITALS (13 sets, daily range): BP systolic 132–142; BP diastolic 68–82; PULSE 74–93; RESP 12–23; TEMP 98.9; O2SAT 92–100
[2023-10-06] MEDS: VANCOMYCIN 1GM/200ML 200 ML IV ONE (00:13)
[2023-10-06] MEDS: IPRATROPIUM BROM 0.5 MG/2.5ML INH SOL NEB PRN (00:48)
[2023-10-06] MEDS: ALBUTEROL SULF 2.5 MG/0.5ML(0.5%) NEB SOLN NEB PRN (00:48)
[2023-10-06] MEDS: ACETAMINOPHEN 325 MG TAB PO PRN (03:41)
[2023-10-06 06:02] LABS: Basophils # (auto) 0 10 ^3/uL (0-0.2); Basophils % (auto) 0.2 % (0.0-2.0); Eosinophils # (auto) 0.3 10 ^3/uL (0-0.8); Eosinophils % (auto) 1.3 % (0.0-7.0); Hematocrit 42.6 % (41.0-53.0); Hemoglobin 14.4 g/dL (13.5-17.5); Lymphocytes # (auto) 1.5 10 ^3/uL (0.4-5.4); Lymphocytes % (auto) 7.2 % (10.0-50.0); Mean Corpuscular Hemoglobin 31.3 pg (28.0-32.0); Mean Corpuscular Hgb Conc. 33.7 g/dL (32.0-36.0); Mean Corpuscular Volume 92.8 fL (80.0-100.0); Monocytes # (auto) 2.7 10 ^3/uL (0-1.3); Monocytes % (auto) 13.3 % (0.0-12.0); Neutrophils # (auto) 15.8 10 ^3/uL (1.6-8.6); Red Blood Cells 4.59 10^6/uL (4.5-5.90); Red Cell Distribution Width 15.1 % (11.8-14.3); White Blood Cell 20.3 10^3/uL (4.4-10.8)
[2023-10-06 06:15] LABS: Alanine Aminotransferase 22 U/L (7-40); Alkaline Phosphatase 97 U/L (46-116); Anion Gap 7 (5-15); Aspartate Aminotransferase 21 U/L (13-40); BUN/Creatinine Ratio 14.3 (10.0-20.0); Blood Urea Nitrogen 16 mg/dL (9-23); Calcium 9.3 mg/dL (8.7-10.4); Carbon Dioxide 22 mmol/L (20-30); Chloride 108 mmol/L (98-107); Glucose 98 mg/dL (74-106); Potassium 3.9 mmol/L (3.5-5.1); Sodium 137 mmol/L (136-145)
[2023-10-06 06:16] LABS: Albumin 3.7 g/dL (3.2-4.8)
[2023-10-06] MEDS: cefTRIAXone 1GM/50ML D5W 50 ML IV SCH (09:19)
[2023-10-06] MEDS: ASPirin 81 mg TAB PO SCH (09:54)
[2023-10-06] MEDS: VANCOMYCIN 1GM/200ML 200 ML IV SCH (12:00)
[2023-10-06] MEDS: MEROPENEM 1GM IVPB 50 ML IV SCH (15:15)
[2023-10-07] VITALS (12 sets, daily range): BP systolic 120–149; BP diastolic 71–84; PULSE 72–113; RESP 16–20; TEMP 98–99.8; O2SAT 93–99
[2023-10-07 12:19] LABS: Basophils # (auto) 0.1 10 ^3/uL (0-0.2); Basophils % (auto) 0.5 % (0.0-2.0); Eosinophils # (auto) 0.3 10 ^3/uL (0-0.8); Eosinophils % (auto) 2.3 % (0.0-7.0); Hematocrit 45.3 % (41.0-53.0); Hemoglobin 15.2 g/dL (13.5-17.5); Lymphocytes # (auto) 1.1 10 ^3/uL (0.4-5.4); Mean Corpuscular Hemoglobin 31.2 pg (28.0-32.0); Mean Corpuscular Hgb Conc. 33.6 g/dL (32.0-36.0); Mean Corpuscular Volume 92.9 fL (80.0-100.0); Monocytes # (auto) 1.3 10 ^3/uL (0-1.3); Monocytes % (auto) 10.3 % (0.0-12.0); Neutrophils # (auto) 9.9 10 ^3/uL (1.6-8.6); Neutrophils % (auto) 77.9 % (37.0-80.0); Red Blood Cells 4.87 10^6/uL (4.5-5.90); Red Cell Distribution Width 15.1 % (11.8-14.3); White Blood Cell 12.7 10^3/uL (4.4-10.8)
[2023-10-07] MEDS: VANCOMYCIN 1GM/200ML 200 ML IV SCH (20:46)
[2023-10-07] MEDS: IPRATROPIUM BROM 0.5 MG/2.5ML INH SOL NEB SCH (23:11)
[2023-10-07] MEDS: ALBUTEROL SULF 2.5 MG/0.5ML(0.5%) NEB SOLN NEB SCH (23:11)
[2023-10-07 23:53] LABS: Rapid Influenza A Negative (Negative); Rapid Influenza B Negative (Negative)
[2023-10-07 23:54] LABS: COVID19 ANTIGEN SOFIA FIA NEGATIVE (NEGATIVE)
[2023-10-08] VITALS (21 sets, daily range): BP systolic 114–141; BP diastolic 63–91; PULSE 71–110; RESP 16–22; TEMP 97.4–98.4; O2SAT 93–100
[2023-10-08 07:31] LABS: Basophils # (auto) 0.1 10 ^3/uL (0-0.2); Basophils % (auto) 0.9 % (0.0-2.0); Eosinophils # (auto) 0.3 10 ^3/uL (0-0.8); Eosinophils % (auto) 3.2 % (0.0-7.0); Hemoglobin 14.3 g/dL (13.5-17.5); Lymphocytes # (auto) 1.5 10 ^3/uL (0.4-5.4); Lymphocytes % (auto) 16.7 % (10.0-50.0); Mean Corpuscular Hemoglobin 31.6 pg (28.0-32.0); Mean Corpuscular Volume 92.8 fL (80.0-100.0); Monocytes # (auto) 1.3 10 ^3/uL (0-1.3); Monocytes % (auto) 14.3 % (0.0-12.0); Neutrophils # (auto) 5.8 10 ^3/uL (1.6-8.6); Neutrophils % (auto) 64.9 % (37.0-80.0); Nucleated Red Blood Cells % 0.1 %; Red Blood Cells 4.53 10^6/uL (4.5-5.90); Red Cell Distribution Width 14.8 % (11.8-14.3)
[2023-10-08 07:39] LABS: Chloride 108 mmol/L (98-107); Potassium 4.3 mmol/L (3.5-5.1); Sodium 140 mmol/L (136-145)
[2023-10-08 07:40] LABS: Anion Gap 8 (5-15); Carbon Dioxide 24 mmol/L (20-30)
[2023-10-08 07:45] LABS: Glucose 91 mg/dL (74-106)
[2023-10-08 08:11] LABS: Blood Urea Nitrogen 12 mg/dL (9-23)
[2023-10-08] MEDS: amLODIPine BESYLATE 5 MG TAB PO ONE (13:11)
[2023-10-08] MEDS: METOPROLOL TARTRATE 25 MG TAB PO ONE (13:11)
[2023-10-08] MEDS: METOPROLOL TARTRATE 25 MG TAB PO SCH (21:45)
[2023-10-09] VITALS (13 sets, daily range): BP systolic 141–147; BP diastolic 87–92; PULSE 66–95; RESP 16–21; TEMP 98.1–98.5; O2SAT 93–99
[2023-10-09] MEDS: amLODIPine BESYLATE 5 MG TAB PO SCH (10:16)
[2023-10-09] MEDS: HYDROcodone-ACET 5/325MG TAB PO PRN (10:17)
[2023-10-09] MEDS: ONDANSETRON HCL 4 MG/2 ML VIAL IV PRN (11:41)
[2023-10-09] MEDS ORDERED: AUG875T PO (14:47)
[2023-10-09] MEDS ORDERED: IPRATROPIUM BROM 0.5 MG/2.5ML INH SOL ONE (21:24)
[2023-10-09] MEDS ORDERED: ALBUTEROL SULF 2.5 MG/0.5ML(0.5%) NEB SOLN ONE (21:24)
== END 2023-10-09 18:29 | disposition home or self-care (01) | DRG 871 ==
LOC: ER 16:45 → TELE 23:22 → TELE-WESTW 10-06 16:51 → WEST WING 10-06 17:00
PROVIDERS: ADMIT Nurse Practitioner Family; ATTEND Internal Medicine Geriatric Medicine
DX: A41.9 Sepsis, unspecified organism (principal); J18.9 Pneumonia, unspecified organism; C22.9 Malignant neoplasm of liver, not specified as primary or secondary; N17.9 Acute kidney failure, unspecified; J44.0 Chronic obstructive pulmonary disease with (acute) lower respiratory infection; J43.1 Panlobular emphysema; Z20.822 Contact with and (suspected) exposure to COVID-19; F17.210 Nicotine dependence, cigarettes, uncomplicated; I12.9 Hypertensive chronic kidney disease with stage 1 through stage 4 chronic kidney disease, or unspecified chronic kidney disease; N18.9 Chronic kidney disease, unspecified; Z88.1 Allergy status to other antibiotic agents; I25.2 Old myocardial infarction; Z90.49 Acquired absence of other specified parts of digestive tract
CPT/HCPCS: 36415; 71045; 74176; 80048; 80053; 80202; 81001; 82565; 83690; 84484; 85007; 85025; 85027; 87040; 87426; 87804; 93005; 93306; 94640; G0378; J2185; J2405; J2543

== ENCOUNTER 2023-10-18 03:57 | Inpatient (IN) | payer MEDICARE, MEDICAID ==
[2023-10-18] VITALS (15 sets, daily range): BP systolic 125–145; BP diastolic 72–86; PULSE 75–104; RESP 14–23; TEMP 97.9–98; O2SAT 93–98
[~2023-10-18] VITALS: Ht 182.9 cm; Wt 81.5 kg
[~2023-10-18 03:57] MED LIST changes: +AUG875T PO
[2023-10-18 04:25] LABS: Basophils # (auto) 0.1 10 ^3/uL (0-0.2); Basophils % (auto) 0.8 % (0.0-2.0); Eosinophils # (auto) 0.1 10 ^3/uL (0-0.8); Eosinophils % (auto) 0.7 % (0.0-7.0); Hematocrit 49.2 % (41.0-53.0); Hemoglobin 16.5 g/dL (13.5-17.5); Lymphocytes # (auto) 1.8 10 ^3/uL (0.4-5.4); Lymphocytes % (auto) 10.8 % (10.0-50.0); Mean Corpuscular Hemoglobin 30.9 pg (28.0-32.0); Mean Corpuscular Hgb Conc. 33.5 g/dL (32.0-36.0); Mean Corpuscular Volume 92.3 fL (80.0-100.0); Monocytes # (auto) 2.4 10 ^3/uL (0-1.3); Monocytes % (auto) 14.3 % (0.0-12.0); Neutrophils # (auto) 12.5 10 ^3/uL (1.6-8.6); Neutrophils % (auto) 73.4 % (37.0-80.0); Nucleated Red Blood Cells % 0.2 %; Red Blood Cells 5.33 10^6/uL (4.5-5.90); Red Cell Distribution Width 14.8 % (11.8-14.3)
[2023-10-18 04:47] LABS: Alanine Aminotransferase 41 U/L (7-40); Albumin 4.1 g/dL (3.2-4.8); Alkaline Phosphatase 151 U/L (46-116); Anion Gap 7 (5-15); Aspartate Aminotransferase 48 U/L (13-40); BUN/Creatinine Ratio 15.4 (10.0-20.0); Blood Urea Nitrogen 18 mg/dL (9-23); Calcium 9.6 mg/dL (8.7-10.4); Carbon Dioxide 25 mmol/L (20-30); Chloride 103 mmol/L (98-107); Glucose 133 mg/dL (74-106); Potassium 4.2 mmol/L (3.5-5.1); Sodium 135 mmol/L (136-145)
[2023-10-18 04:48] LABS: Bilirubin, Total 0.7 mg/dL (0.2-1.0); Total Protein 6.9 g/dL (5.7-8.2)
[2023-10-18] MEDS: cefTRIAXone 1GM/50ML D5W 50 ML IV ONE (06:55)
[2023-10-18] MEDS: methylPREDNISolone SOD SUCC 125 MG/2 ML VL IV ONE (06:55)
[2023-10-18] MEDS: ALBUTEROL SULF 2.5 MG/0.5ML(0.5%) NEB SOLN NEB ONE (07:09)
[2023-10-18] MEDS: IPRATROPIUM BROM 0.5 MG/2.5ML INH SOL NEB ONE (07:09)
[2023-10-18] MEDS: AZITHROMYCIN 500MG/ 250ML 250 ML IV ONE (08:00)
[2023-10-18] MEDS ORDERED: ALBUTEROL SULF 2.5 MG/0.5ML(0.5%) NEB SOLN NEB PRN (08:30)
[2023-10-18] MEDS ORDERED: VANCOMYCIN PER PHARMACY 0 MG IV SCH (08:30)
[2023-10-18] MEDS: MEROPENEM 1GM IVPB 50 ML IV ONE (09:04)
[2023-10-18] MEDS ORDERED: ACETAMINOPHEN 325 MG TAB PO PRN (09:15)
[2023-10-18] MEDS ORDERED: traZODone HCL 50 MG TAB PO PRN (09:15)
[2023-10-18] MEDS: PSYLLIUM 48.57% PO SCH (10:00)
[2023-10-18] MEDS ORDERED: LACTULOSE 10 GM PO SCH (10:00)
[2023-10-18] MEDS: IPRATROPIUM BROM 0.5 MG/2.5ML INH SOL NEB SCH (10:04)
[2023-10-18] MEDS: ALBUTEROL SULF 2.5 MG/0.5ML(0.5%) NEB SOLN NEB SCH (10:04)
[2023-10-18] MEDS: METOPROLOL TARTRATE 25 MG TAB PO SCH (10:16)
[2023-10-18] MEDS: LACTULOSE 20Gm/30ML SOLN PO SCH (10:16)
[2023-10-18] MEDS: ENOXAPARIN SOD 40 MG/0.4 ML SYRINGE SC SCH (10:17)
[2023-10-18] MEDS: CYCLOBENZAPRINE HCL 10 MG TAB PO SCH (10:20)
[2023-10-18] MEDS: ASPirin-EC 81 mg tab PO SCH (10:20)
[2023-10-18] MEDS: SODIUM CHLORIDE 0.9% 1,000 ML IV SCH (10:21)
[2023-10-18] MEDS: SODIUM CHLORIDE 0.9% 1,000 ML IV ONE (10:21)
[2023-10-18] MEDS: methylPREDNISolone SOD SUCC 40 MG/ML VL IV SCH (10:22)
[2023-10-18] MEDS: VANCOMYCIN 1GM/200ML 200 ML IV ONE (10:23)
[2023-10-18] MEDS: MEROPENEM 1GM IVPB 50 ML IV SCH (14:32)
[2023-10-18] MEDS: VANCOMYCIN 1GM/200ML 200 ML IV SCH (21:33)
[2023-10-19] VITALS (19 sets, daily range): BP systolic 130–146; BP diastolic 76–88; PULSE 82–97; RESP 14–22; TEMP 97.4–98.4; O2SAT 93–99
[2023-10-19 05:26] LABS: Basophils # (auto) 0 10 ^3/uL (0-0.2); Basophils % (auto) 0.3 % (0.0-2.0); Eosinophils # (auto) 0 10 ^3/uL (0-0.8); Hematocrit 44.2 % (41.0-53.0); Hemoglobin 14.7 g/dL (13.5-17.5); Lymphocytes # (auto) 0.8 10 ^3/uL (0.4-5.4); Lymphocytes % (auto) 6.2 % (10.0-50.0); Mean Corpuscular Hemoglobin 30.7 pg (28.0-32.0); Mean Corpuscular Hgb Conc. 33.2 g/dL (32.0-36.0); Mean Corpuscular Volume 92.5 fL (80.0-100.0); Monocytes # (auto) 0.6 10 ^3/uL (0-1.3); Monocytes % (auto) 4.2 % (0.0-12.0); Neutrophils % (auto) 89.3 % (37.0-80.0); Nucleated Red Blood Cells % 0.1 %; Red Blood Cells 4.78 10^6/uL (4.5-5.90); Red Cell Distribution Width 14.8 % (11.8-14.3); White Blood Cell 13.4 10^3/uL (4.4-10.8)
[2023-10-19 05:47] LABS: Alanine Aminotransferase 30 U/L (7-40); Albumin 3.7 g/dL (3.2-4.8); Alkaline Phosphatase 120 U/L (46-116); Anion Gap 5 (5-15); Aspartate Aminotransferase 30 U/L (13-40); BUN/Creatinine Ratio 19.6 (10.0-20.0); Blood Urea Nitrogen 20 mg/dL (9-23); Calcium 9.4 mg/dL (8.7-10.4); Carbon Dioxide 25 mmol/L (20-30); Chloride 108 mmol/L (98-107); Glucose 154 mg/dL (74-106); Potassium 5.3 mmol/L (3.5-5.1); Sodium 138 mmol/L (136-145)
[2023-10-19 05:48] LABS: Bilirubin, Total 0.5 mg/dL (0.2-1.0); Total Protein 6.1 g/dL (5.7-8.2)
[2023-10-20] VITALS (17 sets, daily range): BP systolic 133–147; BP diastolic 76–82; PULSE 72–94; RESP 16–20; TEMP 97.6–98.5; O2SAT 69–100
[2023-10-20 09:16] LABS: Urine Bacteria None Seen /hpf (None Seen); Urine WBC None Seen /hpf (0 - 3)
[2023-10-20 09:27] LABS: Urine Blood TRACE /uL (Negative); Urine Clarity Clear (Clear); Urine Color Light-Yellow (Yellow); Urine Hyaline Cast FEW /lpf (0 - 2); Urine Protein, UAD 1+ (Negative); Urine Specific Gravity 1.018 (1.001-1.035); Urine Urobilinogen Normal (Negative); Urine pH 5.5 (5.0-9.0)
[2023-10-20] MEDS: HYDROcodone-ACET 5/325MG TAB PO PRN (19:58)
[2023-10-20] MEDS: FAMOTIDINE 20 MG TAB PO PRN (21:51)
[2023-10-21] VITALS (18 sets, daily range): BP systolic 140–152; BP diastolic 71–92; PULSE 70–86; RESP 16–22; TEMP 97.4–98.1; O2SAT 94–100
[2023-10-21 06:14] LABS: Basophils # (auto) 0 10 ^3/uL (0-0.2); Eosinophils # (auto) 0 10 ^3/uL (0-0.8); Hematocrit 44.1 % (41.0-53.0); Hemoglobin 14.8 g/dL (13.5-17.5); Lymphocytes # (auto) 0.7 10 ^3/uL (0.4-5.4); Lymphocytes % (auto) 5.4 % (10.0-50.0); Mean Corpuscular Hgb Conc. 33.5 g/dL (32.0-36.0); Mean Corpuscular Volume 92.7 fL (80.0-100.0); Monocytes # (auto) 0.6 10 ^3/uL (0-1.3); Monocytes % (auto) 4.8 % (0.0-12.0); Neutrophils # (auto) 11.7 10 ^3/uL (1.6-8.6); Neutrophils % (auto) 89.8 % (37.0-80.0); Red Blood Cells 4.76 10^6/uL (4.5-5.90); Red Cell Distribution Width 14.6 % (11.8-14.3); White Blood Cell 13.1 10^3/uL (4.4-10.8)
[2023-10-21 06:31] LABS: Alanine Aminotransferase 58 U/L (7-40); Albumin 3.6 g/dL (3.2-4.8); Alkaline Phosphatase 125 U/L (46-116); Anion Gap 4 (5-15); Aspartate Aminotransferase 66 U/L (13-40); BUN/Creatinine Ratio 23.8 (10.0-20.0); Blood Urea Nitrogen 20 mg/dL (9-23); Calcium 9.6 mg/dL (8.5-10.1); Carbon Dioxide 29 mmol/L (20-30); Chloride 106 mmol/L (98-107); Glucose 131 mg/dL (74-106); Potassium 5.3 mmol/L (3.5-5.1); Sodium 139 mmol/L (136-145)
[2023-10-21 06:32] LABS: Bilirubin, Total 0.5 mg/dL (0.2-1.0); Total Protein 5.9 g/dL (5.7-8.2)
[2023-10-21 08:16] LABS: COVID19 ANTIGEN SOFIA FIA NEGATIVE (NEGATIVE)
[2023-10-22] VITALS (19 sets, daily range): BP systolic 134–143; BP diastolic 70–96; PULSE 75–91; RESP 14–22; TEMP 97.4–98.1; O2SAT 93–100
[2023-10-22 06:55] LABS: Basophils # (auto) 0 10 ^3/uL (0-0.2); Basophils % (auto) 0.1 % (0.0-2.0); Eosinophils # (auto) 0 10 ^3/uL (0-0.8); Hematocrit 42.8 % (41.0-53.0); Hemoglobin 14.8 g/dL (13.5-17.5); Lymphocytes # (auto) 0.6 10 ^3/uL (0.4-5.4); Mean Corpuscular Hemoglobin 31.7 pg (28.0-32.0); Mean Corpuscular Hgb Conc. 34.5 g/dL (32.0-36.0); Mean Corpuscular Volume 91.8 fL (80.0-100.0); Monocytes # (auto) 0.6 10 ^3/uL (0-1.3); Monocytes % (auto) 5.4 % (0.0-12.0); Neutrophils # (auto) 9.1 10 ^3/uL (1.6-8.6); Neutrophils % (auto) 88.5 % (37.0-80.0); Nucleated Red Blood Cells % 0.1 %; Red Blood Cells 4.66 10^6/uL (4.5-5.90); Red Cell Distribution Width 14.3 % (11.8-14.3); White Blood Cell 10.2 10^3/uL (4.4-10.8)
[2023-10-22 07:09] LABS: Alanine Aminotransferase 91 U/L (7-40); Alkaline Phosphatase 121 U/L (46-116); Anion Gap 4 (5-15); BUN/Creatinine Ratio 31.9 (10.0-20.0); Blood Urea Nitrogen 23 mg/dL (9-23); Calcium 9.4 mg/dL (8.5-10.1); Carbon Dioxide 31 mmol/L (20-30); Chloride 103 mmol/L (98-107); Glucose 128 mg/dL (74-106); Potassium 4.8 mmol/L (3.5-5.1); Sodium 138 mmol/L (136-145)
[2023-10-22 07:10] LABS: Albumin 3.3 g/dL (3.2-4.8); Aspartate Aminotransferase 67 U/L (13-40); Bilirubin, Total 0.6 mg/dL (0.2-1.0); Total Protein 5.3 g/dL (5.7-8.2)
[2023-10-23] VITALS (19 sets, daily range): BP systolic 134–151; BP diastolic 68–89; PULSE 71–90; RESP 16–21; TEMP 98.1–98.8; O2SAT 90–100
[2023-10-23 05:29] LABS: Basophils # (auto) 0 10 ^3/uL (0-0.2); Eosinophils # (auto) 0 10 ^3/uL (0-0.8); Hematocrit 44.1 % (41.0-53.0); Hemoglobin 14.9 g/dL (13.5-17.5); Lymphocytes # (auto) 0.7 10 ^3/uL (0.4-5.4); Lymphocytes % (auto) 6.9 % (10.0-50.0); Mean Corpuscular Hgb Conc. 33.8 g/dL (32.0-36.0); Mean Corpuscular Volume 91.8 fL (80.0-100.0); Monocytes # (auto) 0.7 10 ^3/uL (0-1.3); Monocytes % (auto) 6.6 % (0.0-12.0); Neutrophils # (auto) 8.6 10 ^3/uL (1.6-8.6); Neutrophils % (auto) 86.5 % (37.0-80.0); Nucleated Red Blood Cells % 0.1 %; Red Cell Distribution Width 14.2 % (11.8-14.3); White Blood Cell 9.9 10^3/uL (4.4-10.8)
[2023-10-23 05:50] LABS: Alanine Aminotransferase 139 U/L (7-40); Albumin 3.3 g/dL (3.2-4.8); Alkaline Phosphatase 129 U/L (46-116); Anion Gap 3 (5-15); Aspartate Aminotransferase 88 U/L (13-40); BUN/Creatinine Ratio 24.1 (10.0-20.0); Blood Urea Nitrogen 20 mg/dL (9-23); Calcium 9.6 mg/dL (8.5-10.1); Carbon Dioxide 32 mmol/L (20-30); Chloride 102 mmol/L (98-107); Glucose 138 mg/dL (74-106); Sodium 137 mmol/L (136-145)
[2023-10-23 05:51] LABS: Bilirubin, Total 0.6 mg/dL (0.2-1.0); Total Protein 5.5 g/dL (5.7-8.2)
[2023-10-23 05:56] LABS: Potassium 5.7 mmol/L (3.5-5.1)
[2023-10-23] MEDS: SODIUM ZIRCONIUM CYCL 10 GM PAK PO ONE ×3 (06:50→12:26)
[2023-10-23] MEDS: PSYLLIUM PWD 5.8GM PKG PO SCH (08:01)
[2023-10-23 10:23] LABS: Phosphorus 3.5 mg/dL (2.4-5.1)
[2023-10-23] MEDS: FUROSEMIDE 40 MG/4 ML VIAL IV SCH (12:30)
[2023-10-23] MEDS: predniSONE 20 MG TAB PO ONE (14:34)
[2023-10-23 21:24] LABS: Uric Acid 2.8 mg/dL (3.7-9.2)
[2023-10-24] VITALS (13 sets, daily range): BP systolic 133–152; BP diastolic 82–93; PULSE 72–94; RESP 14–20; TEMP 97.8–98.3; O2SAT 90–100
[2023-10-24 07:26] LABS: Protein, Urine 90.5 mg/dL (0.0-11.9)
[2023-10-24 07:27] LABS: Creatinine, Urine 83.21 mg/dL (30.0-125.0)
[2023-10-24 08:06] LABS: Complement C3 107 mg/dL (82-167)
[2023-10-24] MEDS ORDERED: PRED20TA2 PO (09:11)
[2023-10-24] MEDS ORDERED: AZIT500T66 PO (09:11)
[2023-10-24] MEDS: predniSONE 20 MG TAB PO SCH (10:13)
[2023-10-25 09:00] LABS: Hepatitis B Surface Antibody Negative (Negative)
[2023-10-25 10:51] LABS: Hepatitis C Antibody Reactive (Negative)
== END 2023-10-24 13:10 | disposition home or self-care (01) | DRG 871 ==
LOC: ER 03:57 → EDUNIT# 03:57 → EDBD 03:57 → OVERFLOW 09:03 → CENTRAL 13:07
PROVIDERS: ADMIT Family Medicine; ATTEND Family Medicine
DX: A41.9 Sepsis, unspecified organism (principal); J96.21 Acute and chronic respiratory failure with hypoxia; J44.1 Chronic obstructive pulmonary disease with (acute) exacerbation; N17.9 Acute kidney failure, unspecified; E86.0 Dehydration; I10 Essential (primary) hypertension; Z20.822 Contact with and (suspected) exposure to COVID-19; F12.10 Cannabis abuse, uncomplicated; F17.210 Nicotine dependence, cigarettes, uncomplicated; E87.5 Hyperkalemia; J43.9 Emphysema, unspecified; K74.60 Unspecified cirrhosis of liver; Z71.89 Other specified counseling; Z90.79 Acquired absence of other genital organ(s); Z85.05 Personal history of malignant neoplasm of liver; Z88.1 Allergy status to other antibiotic agents; I25.2 Old myocardial infarction; Z99.81 Dependence on supplemental oxygen; Z90.49 Acquired absence of other specified parts of digestive tract
CPT/HCPCS: 36415; 71045; 71250; 74176; 80053; 80202; 81001; 82306; 82550; 82570; 83036; 83605; 83880; 83935; 83970; 84100; 84133; 84156; 84300; 84484; 84550; 85025; 85379; 86160; 86706; 86803; 87040; 87086; 87426; 93005; 93970; 94640; G0378; J2185